=== PATIENT | female | born 1945 | race Caucasian/White ===

== ENCOUNTER 2016-07-14 16:10 | Emergency (ER) | payer OTHER ==
[~2016-07-14] VITALS: Ht 152.4 cm; Wt 65.0 kg
[~2016-07-14 16:10] MED LIST: ALBU0.08 NEB; AMIK4INJ2 NEB; ASPI1TAB69 PO; AZIT250T3 PO; CARV6.252 PO; CLOB-23 TOPICAL; CLON0.5T PO; ETHA400T PO; FLUT1INH INH; FURO1TAB62 PO; IBUP-988 PO; LEVO.1 PO; LOSA25TA PO; METF500T PO; PRAV80TA2 PO; RANI150T PO; VENL75TA2 PO; VENTAER INH
[2016-07-14 16:14] VITALS: BP 126/65; PULSE 113; RESP 16; TEMP 98.2; O2SAT 95
[2016-07-14] MEDS ORDERED: SODIUM CHLOR 0.9% 1000 ML INJ 1,000 ML IV SCH (16:29)
[2016-07-14] MEDS ORDERED: HYDROmorphone HCL PF 1 MG/ML VIAL IVS ONE (16:30)
[2016-07-14] MEDS ORDERED: SODIUM CHLORIDE 0.9% FLUSH 5 ML FLUSH IVF PRN (16:30)
[2016-07-14] MEDS ORDERED: ONDANSETRON HCL 4 MG/2 ML VIAL IVP ONE (16:30)
--- NOTE | 2016-07-14 16:34 | PD ---
HPI Chief Complaint: Abdominal Pain Time Seen by Provider: 16:29 Travel History International Travel<30 days: No Contact w/Intl Traveler<30days: No Traveled to known affect area: No History of Present Illness HPI 71-year-old female with history of multiple medical issues, presents to the ER today with one-day history of 10 out of 10 left lower quadrant pains that started at 11 AM. She denies any nausea, vomiting, diarrhea, fevers, urinary symptoms, or any other symptoms. Pain started pretty quickly and is constant in nature. She does not know any exacerbating or alleviating factors. Modifying Factors: None Associated Signs & Symptoms: Left lower quadrant abdominal pain Risk Factors: None PFSH Past Medical History Hx Anticoagulant Therapy: Yes (81 MG. 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 , HTN, CHOL) High Cholesterol: Yes Chemotherapy: No Chest Pain: Yes (cardiac cath) Congestive Heart Failure: Yes COPD: Yes Cerebrovascular Accident: Yes Diabetes: Yes Diminished Hearing: No Endocrine: Yes (HYPOTHYRODISM) Gastrointestinal Disorders: Yes (REFLUX) GERD: Yes Genitourinary: Yes Headaches: Yes Hepatitis: No Hiatal Hernia: Yes Hypertension: Yes Immune Disorder: Yes (SARCOIDOSIS) Kidney Stones: Yes Musculoskeletal: Yes Neurologic: Yes Psychiatric: Yes Reproductive: No Respiratory: Yes Immunizations Current: Yes Migraines: Yes (optical migraine) Radiation Therapy: No Renal Failure: No Seizures: No Sleep Apnea: No Ulcer: No ?: Not Menopausal: Yes Tubal Ligation: Yes Past Surgical History Abdominal Surgery: Yes (cholecystectomy and appendetomy) AICD: No Arteriovenous Shunt: No Cardiac Surgery: Yes (cardiac cath) Cholecystectomy: Yes Ear Surgery: No Endocrine Surgery: Yes (thyroidectomy) Eye Surgery: No Genitourinary Surgery: Yes (bladder sling) Gynecologic Surgery: No Insulin Pump: No Joint Replacement: No Oral Surgery: No Pacemaker: No Thoracic Surgery: Yes ( mass remval from sternum) Tonsillectomy: Yes Other Surgery: Yes (THYROIDECTOMY) Social History Alcohol Use: No (STOPPED DRINKING AUGUST 2015) Tobacco Use: No Substance Use: No Allergies-Medications (Allergen,Severity, Reaction): Coded Allergies: Allopurinol (Verified Allergy, Severe, RASH, 07/14/16) RAMUCIRUMAB (Verified Allergy, Intermediate, nausea vomiting, 07/14/16) possible allergy Sulfa (Unverified Allergy, Intermediate, Rash, 07/14/16) Oxycodone (Verified Allergy, Mild, ITCHING, 07/14/16) Cephalexin (Verified Allergy, Unknown, HIVES, 07/14/16) Methimazole (Verified Allergy, Unknown, HIVES, 07/14/16) Trimethoprim (Unverified Allergy, Unknown, HIVES, 07/14/16) Propranolol (Verified Adverse Reaction, Severe, NAUSEAS, 07/14/16) BRUISING AND NAUSEA Propylthiouracil (Unverified Adverse Reaction, Severe, NAUSES, 07/14/16) BRUISING AND NAUSEA Meloxicam (Verified Adverse Reaction, Intermediate, NAUSEA, 07/14/16) Reported Meds & Prescriptions Reported Meds & Active Scripts Active Reported Amikacin Inj (Amikacin Sulfate) 500 Mg/2 Ml Inj 500 Mg NEB BID Advil (Ibuprofen) 200 Mg Tab 200 Mg PO DIRECTED PRN Ranitidine (Ranitidine HCl) 150 Mg Tab 150 Mg PO DAILY PRN Ethambutol (Ethambutol HCl) 400 Mg Tab 900 Mg PO DAILY Azithromycin 250 Mg Tab 250 Mg PO DAILY Albuterol Neb (Albuterol Sulfate) 2.5 Mg/3 Ml Neb 2.5 Mg NEB BID While awake Ventolin Hfa 18 GM Inh (Albuterol Sulfate) 90 Mcg/Act Aer 1 Puff INH DIRECTED PRN Venlafaxine ER 24 HR (Venlafaxine HCl) 75 Mg Tab 75 Mg PO DAILY Synthroid (Levothyroxine Sodium) 100 Mcg Tab 100 Mcg PO DAILY Pravastatin 80 Mg Tab 80 Mg PO HS Metformin (Metformin HCl) 500 Mg Tab 500 Mg PO BID With meals Losartan (Losartan Potassium) 25 Mg Tab 25 Mg PO HS Lasix (Furosemide) 20 Mg Tab 10 Mg PO DAILY Breo Ellipta Inh (Fluticasone/Vilanterol) 100-25 Mcg/Act Inh 1 Puff INH DAILY Use daily at the same time. Clonazepam 0.5 Mg Tab 0.5 Mg PO HS Carvedilol 6.25 Mg Tab 6.25 Mg PO BID Aspirin 81 Mg Tabdr 81 Mg PO HS Review of Systems Except as stated in HPI: all other systems reviewed are Neg Physical Exam Narrative GENERAL: Well-nourished, well-developed elderly white female patient in mild distress. SKIN: Warm and dry. HEAD: Normocephalic. EYES: No scleral icterus. No injection or drainage. NECK: Supple, trachea midline. CARDIOVASCULAR: Regular rate and rhythm without murmurs, gallops, or rubs. RESPIRATORY: Breath sounds equal bilaterally. No accessory muscle use. GASTROINTESTINAL: Abdomen soft, left-sided tenderness without guarding or rebound, nondistended. MUSCULOSKELETAL: No cyanosis, or edema. BACK: Nontender without obvious deformity. No CVA tenderness. Data Data Last Documented VS Vital Signs Date Time Temp Pulse Resp B/P Pulse Ox O2 Delivery O2 Flow Rate FiO2 07/14/16 18:14 98 16 94/57 94 Room Air 07/14/16 16:14 98.2 Orders Complete Blood Count With Diff (07/14/16 16:29) Comprehensive Metabolic Panel (07/14/16 16:29) Lipase (07/14/16 16:29) Urinalysis - C+S If Indicated (07/14/16 16:29) Ct Abd/Pel W Iv Contrast(Rout) (07/14/16 16:29) Iv Access Insert/Monitor (07/14/16 16:29) Ecg Monitoring (07/14/16 16:29) Oximetry (07/14/16 16:29) Ondansetron Inj (Zofran Inj) (07/14/16 16:30) Sodium Chlor 0.9% 1000 Ml Inj (Ns 1000 M (07/14/16 16:29) Sodium Chloride 0.9% Flush (Ns Flush) (07/14/16 16:30) Hydromorphone Pf Inj (Dilaudid Pf Inj) (07/14/16 16:30) Labs Laboratory Tests Test 07/14/16 07/14/16 16:50 18:05 White Blood Count 10.6 TH/MM3 Red Blood Count 4.54 MIL/MM3 Hemoglobin 12.9 GM/DL Hematocrit 39.6 % Mean Corpuscular Volume 87.2 FL Mean Corpuscular Hemoglobin 28.4 PG Mean Corpuscular Hemoglobin 32.5 % Concent Red Cell Distribution Width 14.4 % Platelet Count 288 TH/MM3 Mean Platelet Volume 8.1 FL Neutrophils (%) (Auto) 77.4 % Lymphocytes (%) (Auto) 14.3 % Monocytes (%) (Auto) 5.7 % Eosinophils (%) (Auto) 1.7 % Basophils (%) (Auto) 0.9 % Neutrophils # (Auto) 8.2 TH/MM3 Lymphocytes # (Auto) 1.5 TH/MM3 Monocytes # (Auto) 0.6 TH/MM3 Eosinophils # (Auto) 0.2 TH/MM3 Basophils # (Auto) 0.1 TH/MM3 CBC Comment DIFF FINAL Differential Comment Sodium Level 137 MEQ/L Potassium Level 3.6 MEQ/L Chloride Level 99 MEQ/L Carbon Dioxide Level 27.6 MEQ/L Anion Gap 10 MEQ/L Blood Urea Nitrogen 21 MG/DL Creatinine 1.00 MG/DL Estimat Glomerular Filtration 55 ML/MIN Rate Random Glucose 113 MG/DL Calcium Level 9.3 MG/DL Total Bilirubin 0.6 MG/DL Aspartate Amino Transf 24 U/L (AST/SGOT) Alanine Aminotransferase 18 U/L (ALT/SGPT) Alkaline Phosphatase 144 U/L Total Protein 8.2 GM/DL Albumin 3.9 GM/DL Lipase 422 U/L Urine Collection Type VOIDED Urine Color STRAW Urine Turbidity CLEAR Urine pH 6.0 Urine Specific [place] 1.015 Urine Protein NEG mg/dL Urine Glucose (UA) NEG mg/dL Urine Ketones NEG mg/dL Urine Occult Blood TRACE Urine Nitrite NEG Urine Bilirubin NEG Urine Leukocyte Esterase NEG Urine WBC 0-2 /hpf Urine Squamous Epithelial 0-2 /hpf Cells Microscopic Urinalysis Comment CULT NOT INDICATED MDM Medical Decision Making Medical Screen Exam Complete: Yes Emergency Medical Condition: Yes Medical Record Reviewed: Yes Interpretation(s) Laboratory Tests Test 07/14/16 07/14/16 16:50 18:05 Neutrophils (%) (Auto) 77.4 % (16.0-70.0) Neutrophils # (Auto) 8.2 TH/MM3 (1.8-7.7) Blood Urea Nitrogen 21 MG/DL (7-18) Estimat Glomerular Filtration 55 ML/MIN (>89) Rate Random Glucose 113 MG/DL (74-106) Alkaline Phosphatase 144 U/L (45-117) Lipase 422 U/L (73-393) Urine Occult Blood TRACE (NEG) Differential Diagnosis Left-sided abdominal painrenal colic versus pyelonephritis versus musculoskeletal versus diverticulitis Narrative Course Lab work shows elevation in lipase indicative of underlying mild pancreatitis. UA did not show any signs of significant acute UTI. The CAT scan does show some signs of mild diverticulitis, colitis as well. At this point, my plan would be to have her go on a clear diet for several days and avoid alcohol intake which she states she takes on a regular basis. We will give her symptomatic relief or pain and follow-up to primary care physician. Return for any worsening in symptoms as necessary. The plan has been discussed with her and she is agreeable. Diagnosis Primary Impression: Diverticulitis Additional Impression: OTHER ACUTE PANCREATITIS WITHOUT NECROSIS OR INFECTION Med/Other Pt SpecificInfo: Prescription(s) given Scripts Metronidazole (Flagyl)500 Mg Tiv219 Mg PO BID 7 Days Ref 0 Prov:Richard Cortez MD 07/14/16 Ciprofloxacin (Cipro)500 Mg Hsi196 Mg PO BID 7 Days Ref 0 Prov:Richard Cortez MD 07/14/16 Ibuprofen (Motrin Ib)200 Mg Xag435 Mg PO Q6H PRN (PAIN SCALE 1 TO 10) #21 TAB Ref 0 Prov:Richard Cortez MD 07/14/16 Disposition: DISCHARGE HOME Condition: Stable Richard Cortez MD Jul 14, 2016 16:33
[2016-07-14 17:03] VITALS: RESP 18; O2SAT 95
[2016-07-14 17:07] LABS: AUTOMATED NEUTROPHIL # 8.2 TH/MM3 (1.8-7.7); BASOPHIL # 0.1 TH/MM3 (0-0.2); BASOPHIL % 0.9 % (0.0-2.0); EOSINOPHIL # 0.2 TH/MM3 (0-0.4); EOSINOPHIL % 1.7 % (0.0-4.0); HEMATOCRIT 39.6 % (35.0-46.0); LYMPH % 14.3 % (9.0-44.0); LYMPHOCYTE # 1.5 TH/MM3 (1.0-4.8); MEAN CELL VOLUME 87.2 FL (80.0-100.0); MEAN CORPUSCULAR HEMOGLOBIN 28.4 PG (27.0-34.0); MEAN CORPUSCULAR HGB CONC 32.5 % (32.0-36.0); MONO % 5.7 % (0.0-8.0); NEUT % 77.4 % (16.0-70.0); PLATELET COUNT 288 TH/MM3 (150-450); RED BLOOD COUNT 4.54 MIL/MM3 (4.00-5.30); RED CELL DISTRIBUTION WIDTH 14.4 % (11.6-17.2); WHITE BLOOD COUNT 10.6 TH/MM3 (4.0-11.0)
[2016-07-14 17:14] LABS: HEMO FLAGS DIFF FINAL
[2016-07-14 17:15] LABS: CHLORIDE 99 MEQ/L (98-107); POTASSIUM 3.6 MEQ/L (3.5-5.1); SODIUM (NA) 137 MEQ/L (136-145)
[2016-07-14 17:19] LABS: ANION GAP 10 MEQ/L (5-15); BICARBONATE 27.6 MEQ/L (21.0-32.0); BLOOD UREA NITROGEN 21 MG/DL (7-18)
[2016-07-14 17:22] LABS: ALT (GPT) 18 U/L (10-53); AST (GOT) 24 U/L (15-37); GLOMERULAR FILTRATION RATE 55 ML/MIN (>89)
[2016-07-14 17:24] LABS: TOTAL BILIRUBIN ADULT 0.6 MG/DL (0.2-1.0)
[2016-07-14 17:25] LABS: ALKALINE PHOSPHATASE 144 U/L (45-117)
[2016-07-14] MEDS ORDERED: AMIK4INJ2 NEB (17:42)
[2016-07-14 18:14] VITALS: BP 94/57; PULSE 98; RESP 16; O2SAT 94
[2016-07-14 18:23] LABS: BLOOD, URINE TRACE (NEG); GLUCOSE,URINE NEG (NEG); KETONE, URINE NEG (NEG); NITRITE,URINE NEG (NEG)
[2016-07-14 18:35] LABS: METHOD OF COLLECTION VOIDED; SQUAMOUS EPITHELIAL CELL URINE 0-2 /hpf (0-5); URINE COLOR STRAW (YELLW/STRAW); WBC, URINE 0-2 /hpf (0-5)
[2016-07-14 18:36] LABS: COMMENT (UR) CULT NOT INDICATED; CULTURE IF INDICATED CULT NOT INDICATED
--- NOTE | 2016-07-14 18:42 | RADHPO ---
EXAM DATE/TIME: 07/14/2016 17:47 [facility] COMPARISON: CT PULMONARY ANGIOGRAM, October 13, 2015, 10:27. CT ABDOMEN & PELVIS W/O CONTR AST, April 09, 2016, 19:36. INDICATIONS : Left lower quadrant pain. IV CONTRAST: 97 cc Omnipaque 350 (iohexol) IV ORAL CONTRAST: No oral contrast ingested. RADIATION DOSE: 13.45 CTDIvol (mGy) MEDICAL HISTORY : Congestive heart failure. Gastroesophageal reflux disease. Chronic obstructive pulmonary disease. Hypertension. Renal calculi. Pulmonary sarcoidosis. Cardiac sarcoidosis. SURGICAL HISTORY : Appendectomy. Cholecystectomy. Tubal ligation. Right hip replacement. ENCOUNTER: Initial ACUITY: 1 day PAIN SCALE: 8/10 LOCATION: Left lower quadrant TECHNIQUE: Volumetric scanning of the abdomen and pelvis was performed. Using automated exposure control and adjustment of the mA and/or kV according to patient size, radiation dose was kept as low as reasonably achievable to obtain optimal diagnostic quality images. FINDINGS: The liver, spleen, pancreas, and adrenal glands appear grossly normal. There does appe ar to be a more horizontal orientation of the right kidney. This is a normal variant. The kidneys a ppear otherwise unremarkable. No hydronephrosis is seen. Scattered atherosclerotic calcifications a re seen throughout the arterial system. No aneurysm is seen. There do appear to be scattered diverticula in the descending and sigmoid portion of the colon. There is some mild induration seen around the junction of the descending and sigmoid portions of the colon likely related to mild diverticulitis. No abscess is seen. There is a densely calcified mass in the left pelvis measuring 4.2 cm. This likely represents a larg e calcified leiomyoma of the uterus. There is some subpleural density seen at the periphery of the right lung. Much of this was present p reviously. There are some new areas and some areas that have resolved. This is typically a pattern for post inflammatory change. There is some nodularity seen in the left lingula. This appears stable . There is degenerative change in the lumbar spine. The patient has a right hip prosthesis in place. There is a 4.4 cm lipoma seen in the anterior superior left thigh musculature. CONCLUSION: 1. Mild inflammatory change around the colon at the junction between the descending and sigmoid regio ns with some scattered diverticula consistent with diverticulitis. 2. Peripheral areas of increased density is seen at the right lower lung and left lingula likely repr esenting post inflammatory change. 3. Calcified leiomyoma of the uterus. Emiliano Espinoza MD on July 14, 2016 at 18:17 Board Certified Radiologist. This report was verified electronically.
[2016-07-14] MEDS ORDERED: MOTR200T4 PO (19:02)
[2016-07-14] MEDS ORDERED: CIPR-9 PO (19:02)
[2016-07-14] MEDS ORDERED: METR-1 PO (19:02)
[2016-07-14 19:44] VITALS: BP 92/64
[2016-07-14] MEDS ORDERED: IOHEXOL 350 MG/ML 10 ML VIAL (for RAD DIAG) IV ONE (21:04)
[2016-07-15] MEDS ORDERED: CYAN100017 PO (14:08)
== END 2016-07-14 20:04 | disposition home or self-care (01) ==
LOC: PHED 16:10
DX: K57.92 Diverticulitis of intestine, part unspecified, without perforation or abscess without bleeding (principal); K52.9 Noninfective gastroenteritis and colitis, unspecified; Z79.01 Long term (current) use of anticoagulants; I50.9 Heart failure, unspecified; J44.9 Chronic obstructive pulmonary disease, unspecified; E11.9 Type 2 diabetes mellitus without complications; K21.9 Gastro-esophageal reflux disease without esophagitis; I10 Essential (primary) hypertension
CPT/HCPCS: 74177; 80053; 81001; 83690; 85025; 96361; 96374; 96375; 99284; J1170; J2405; J7030; Q9967

== ENCOUNTER 2016-07-15 11:57 | Inpatient (IN) | payer OTHER, MEDICARE ==
[~2016-07-15] VITALS: Ht 152.4 cm; Wt 77.1 kg
[2016-07-15] VITALS (11 sets, daily range): BP systolic 90–113; BP diastolic 51–76; PULSE 80–106; RESP 16–20; TEMP 97.7–98.6; O2SAT 92–99
[~2016-07-15 11:57] MED LIST changes: +CIPR-9 PO; -CLOB-23 TOPICAL; +METR-1 PO; +MOTR200T4 PO
[2016-07-15] MEDS ORDERED: SODIUM CHLOR 0.9% 1000 ML INJ 1,000 ML IV SCH (13:02)
--- NOTE | 2016-07-15 13:12 | PD ---
HPI Chief Complaint: Abdominal Pain Time Seen by Provider: 12:44 Travel History International Travel<30 days: No Contact w/Intl Traveler<30days: No Traveled to known affect area: No History of Present Illness HPI 71-year-old female complains of left low quadrant abdominal pain. Patient states that the pain started yesterday. Patient was seen in emergency room yesterday and CT scan abdomen pelvis shows diverticulitis. Patient was given hydromorphone for pain and prescription for Flagyl and Cipro and ibuprofen. Patient was advised to follow with local physician. Patient states that she had persistent pain on the left low quadrant of the abdomen. Patient has not taken her antibiotics because she is afraid of side effects and interaction with her other medications. Patient denies any fever chills.. Patient denies any nausea vomiting diarrhea. Patient denies any dysuria or frequency. On a scale of 1-10 the pain is a 10. PFSH Past Medical History Hx Anticoagulant Therapy: Yes (81 MG. 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) Anxiety: Yes Depression: Yes Heart Rhythm Problems: Yes (right bundle branch block) Cancer: No Cardiac Catheterization: No Cardiovascular Problems: Yes High Cholesterol: Yes Chemotherapy: No Chest Pain: Yes (cardiac cath) Congestive Heart Failure: Yes COPD: Yes Cerebrovascular Accident: Yes Diabetes: Yes Patient Takes Glucophage: Yes Diminished Hearing: No Endocrine: Yes (HYPOTHYRODISM) Gastrointestinal Disorders: Yes (REFLUX) GERD: Yes Genitourinary: Yes Headaches: Yes Hepatitis: No Hiatal Hernia: Yes Heparin Induced Thrombocytopen: No Hypertension: Yes Immune Disorder: Yes (SARCOIDOSIS) Implanted Vascular Access Dvce: No Kidney Stones: Yes Medical other: No Musculoskeletal: Yes Neurologic: Yes Psychiatric: Yes Reproductive: No Respiratory: Yes Immunizations Current: Yes Migraines: Yes (optical migraine) Radiation Therapy: No Renal Failure: No Seizures: No Sleep Apnea: No Ulcer: No Tetanus Vaccination: Unknown Menopausal: Yes Tubal Ligation: Yes Past Surgical History Abdominal Surgery: Yes (cholecystectomy and appendetomy) AICD: No Arteriovenous Shunt: No Cardiac Surgery: Yes (cardiac cath) Cholecystectomy: Yes Ear Surgery: No Endocrine Surgery: Yes (thyroidectomy) Eye Surgery: No Genitourinary Surgery: Yes (bladder sling) Gynecologic Surgery: No Insulin Pump: No Joint Replacement: No Neurologic Surgery: No Oral Surgery: No Pacemaker: No Thoracic Surgery: Yes ( mass remval from sternum (BENIGN)) Tonsillectomy: Yes Other Surgery: Yes (THYROIDECTOMY) Family History Family Myocardial Infarction: No Social History Alcohol Use: No (STOPPED DRINKING AUGUST 2015) Tobacco Use: No (QUIT 1999) Substance Use: No Allergies-Medications (Allergen,Severity, Reaction): Coded Allergies: Allopurinol (Verified Allergy, Severe, RASH, 07/15/16) RAMUCIRUMAB (Verified Allergy, Intermediate, nausea vomiting, 07/15/16) possible allergy Sulfa (Unverified Allergy, Intermediate, Rash, 07/15/16) Oxycodone (Verified Allergy, Mild, ITCHING, 07/15/16) Cephalexin (Verified Allergy, Unknown, HIVES, 07/15/16) Methimazole (Verified Allergy, Unknown, HIVES, 07/15/16) Trimethoprim (Unverified Allergy, Unknown, HIVES, 07/15/16) Propranolol (Verified Adverse Reaction, Severe, NAUSEAS, 07/15/16) BRUISING AND NAUSEA Propylthiouracil (Unverified Adverse Reaction, Severe, NAUSES, 07/15/16) BRUISING AND NAUSEA Meloxicam (Verified Adverse Reaction, Intermediate, NAUSEA, 07/15/16) Reported Meds & Prescriptions Reported Meds & Active Scripts Active Flagyl (Metronidazole) 500 Mg Tab 500 Mg PO BID 7 Days Cipro (Ciprofloxacin HCl) 500 Mg Tab 500 Mg PO BID 7 Days Motrin Ib (Ibuprofen) 200 Mg Tab 600 Mg PO Q6H PRN Reported B-12 (Cyanocobalamin) 1,000 Mcg Cap 1,000 Mcg PO DAILY Amikacin Inj (Amikacin Sulfate) 500 Mg/2 Ml Inj 500 Mg NEB BID Ranitidine (Ranitidine HCl) 150 Mg Tab 150 Mg PO DAILY PRN Ethambutol (Ethambutol HCl) 400 Mg Tab 1,000 Mg PO DAILY Azithromycin 250 Mg Tab 250 Mg PO DAILY Albuterol Neb (Albuterol Sulfate) 2.5 Mg/3 Ml Neb 2.5 Mg NEB BID While awake Ventolin Hfa 18 GM Inh (Albuterol Sulfate) 90 Mcg/Act Aer 1 Puff INH DIRECTED PRN Venlafaxine ER 24 HR (Venlafaxine HCl) 75 Mg Tab 75 Mg PO DAILY Synthroid (Levothyroxine Sodium) 100 Mcg Tab 100 Mcg PO DAILY Pravastatin 80 Mg Tab 80 Mg PO HS Metformin (Metformin HCl) 500 Mg Tab 500 Mg PO BID With meals Losartan (Losartan Potassium) 25 Mg Tab 25 Mg PO HS Lasix (Furosemide) 20 Mg Tab 10 Mg PO DAILY Breo Ellipta Inh (Fluticasone/Vilanterol) 100-25 Mcg/Act Inh 1 Puff INH DAILY Use daily at the same time. Clonazepam 0.5 Mg Tab 0.5 Mg PO HS Carvedilol 6.25 Mg Tab 6.25 Mg PO BID Aspirin 81 Mg Tabdr 81 Mg PO HS Review of Systems General / Constitutional: No: Fever Eyes: No: Visual changes HENT: No: Headaches Cardiovascular: No: Chest Pain or Discomfort Respiratory: No: Shortness of Breath Gastrointestinal: Positive: Abdominal Pain Genitourinary: No: Dysuria Musculoskeletal: No: Pain Skin: No Rash Neurologic: No: Weakness Psychiatric: No: Depression Endocrine: No: Polydipsia Hematologic/Lymphatic: No: Easy Bruising Physical Exam Narrative GENERAL: Well-nourished, well-developed patient. SKIN: Warm and dry. HEAD: Normocephalic. EYES: No scleral icterus. No injection or drainage. NECK: Supple, trachea midline. No JVD or lymphadenopathy. CARDIOVASCULAR: Regular rate and rhythm without murmurs, gallops, or rubs. RESPIRATORY: Breath sounds equal bilaterally. No accessory muscle use. GASTROINTESTINAL: Abdomen soft, nondistended. Patient has moderate tenderness on palpation left lower quadrant of the abdomen. No rebound tenderness. No mass. MUSCULOSKELETAL: No cyanosis, or edema. BACK: Nontender without obvious deformity. No CVA tenderness. Neurologic exam normal. Data Data Last Documented VS Vital Signs Date Time Temp Pulse Resp B/P Pulse Ox O2 Delivery O2 Flow Rate FiO2 07/15/16 14:37 97 Nasal Cannula 2 07/15/16 14:13 92 18 107/76 07/15/16 12:28 98.2 Orders Complete Blood Count With Diff (07/15/16 13:02) Comprehensive Metabolic Panel (07/15/16 13:02) Lipase (07/15/16 13:02) Prothrombin Time / Inr (Pt) (07/15/16 13:02) Act Partial Throm Time (Ptt) (07/15/16 13:02) Urinalysis - C+S If Indicated (07/15/16 13:02) Iv Access Insert/Monitor (07/15/16 13:02) Ecg Monitoring (07/15/16 13:02) Oximetry (07/15/16 13:02) Pantoprazole Inj (Protonix Inj) (07/15/16 13:15) Sodium Chlor 0.9% 1000 Ml Inj (Ns 1000 M (07/15/16 13:02) Electrocardiogram (07/15/16 13:02) Chest, Single Ap (07/15/16 13:02) Levofloxacin 750 Mg Premix Inj (Levaquin (07/15/16 13:15) Metronidazole 500 Mg Inj (Flagyl 500 Mg (07/15/16 13:15) Labs Laboratory Tests Test 07/15/16 07/15/16 13:30 13:35 Urine Color YELLOW Urine Turbidity HAZY Urine pH 6.0 Urine Specific [place] 1.040 Urine Protein 30 mg/dL Urine Glucose (UA) NEG mg/dL Urine Ketones NEG mg/dL Urine Occult Blood TRACE Urine Nitrite NEG Urine Bilirubin NEG Urine Urobilinogen 2.0 MG/DL Urine Leukocyte Esterase TRACE Urine RBC 3 /hpf Urine WBC 3 /hpf Urine Squamous Epithelial 2 /hpf Cells Urine Mucus FEW /lpf Microscopic Urinalysis Comment CULT NOT INDICATED White Blood Count 10.7 TH/MM3 Red Blood Count 4.29 MIL/MM3 Hemoglobin 12.2 GM/DL Hematocrit 37.6 % Mean Corpuscular Volume 87.5 FL Mean Corpuscular Hemoglobin 28.5 PG Mean Corpuscular Hemoglobin 32.5 % Concent Red Cell Distribution Width 15.4 % Platelet Count 260 TH/MM3 Mean Platelet Volume 8.2 FL Neutrophils (%) (Auto) 78.2 % Lymphocytes (%) (Auto) 14.4 % Monocytes (%) (Auto) 6.1 % Eosinophils (%) (Auto) 1.0 % Basophils (%) (Auto) 0.3 % Neutrophils # (Auto) 8.4 TH/MM3 Lymphocytes # (Auto) 1.5 TH/MM3 Monocytes # (Auto) 0.7 TH/MM3 Eosinophils # (Auto) 0.1 TH/MM3 Basophils # (Auto) 0.0 TH/MM3 CBC Comment DIFF FINAL Differential Comment Prothrombin Time 11.4 SEC Prothromb Time International 1.0 RATIO Ratio Activated Partial 27.8 SEC Thromboplast Time Sodium Level 135 MEQ/L Potassium Level 3.7 MEQ/L Chloride Level 100 MEQ/L Carbon Dioxide Level 26.4 MEQ/L Anion Gap 9 MEQ/L Blood Urea Nitrogen 15 MG/DL Creatinine 1.11 MG/DL Estimat Glomerular Filtration 49 ML/MIN Rate Random Glucose 112 MG/DL Calcium Level 8.8 MG/DL Total Bilirubin 1.2 MG/DL Aspartate Amino Transf 37 U/L (AST/SGOT) Alanine Aminotransferase 25 U/L (ALT/SGPT) Alkaline Phosphatase 148 U/L Total Protein 7.3 GM/DL Albumin 3.6 GM/DL Lipase 275 U/L [facility] Medical Decision Making Medical Screen Exam Complete: Yes Emergency Medical Condition: Yes Medical Record Reviewed: Yes Interpretation(s) 1532 PM. Chest x-ray shows chronic infiltrate right upper lobe unchanged from x -ray since June. CBC within normal limit. Creatinine 1.11. UA negative. Differential Diagnosis Differential diagnosis including acute diverticulitis, UTI, pyelonephritis, nephrolithiasis. Narrative Course 71-year-old female with left low quadrant abdominal pain. Patient was seen in emergency room yesterday and diagnosed with diverticulitis. Patient has not been on antibiotics. Normal saline solution 125 cc an hour. Protonix 40 mg IV. Levaquin 750 mg IV. Flagyl 500 mg IV. Diagnosis Primary Impression: Acute diverticulitis Admitting Information Admitting Physician Requests: Admit Sheldon Hdz MD Jul 15, 2016 13:12
[2016-07-15] MEDS ORDERED: LEVOFLOXACIN 750 MG PREMIX INJ 150 ML IV ONE (13:15)
[2016-07-15] MEDS ORDERED: metroNIDAZOLE 500 MG INJ 100 ML IV ONE (13:15)
[2016-07-15] MEDS ORDERED: PANTOPRAZOLE SODIUM 40 MG VIAL IVP ONE (13:15)
--- NOTE | 2016-07-15 13:28 | RADRPT ---
EXAM DATE/TIME: 07/15/2016 13:13 [facility] COMPARISON: Previous study June 2016 available for comparison. INDICATIONS : Free air. Lower chest pain. MEDICAL HISTORY : Congestive heart failure. Gastroesophageal reflux disease. Chronic obstr uctive pulmonary disease. SURGICAL HISTORY : Appendectomy. Cholecystectomy. Tubal ligation. Right hip replacement ENCOUNTER: Initial ACUITY: 1 day PAIN SCORE: 8/10 LOCATION: Bilateral chest FINDINGS: A single view of the chest demonstrates there is a patchy infiltrate in the right lung apex unchanged . Left lung is clear. Heart and mediastinum are unremarkable. CONCLUSION: Chronic infiltrate in the right upper lobe unchanged since June. Alpesh Pham MD on July 15, 2016 at 13:23 Board Certified Radiologist. This report was verified electronically.
[2016-07-15 13:51] LABS: AUTOMATED NEUTROPHIL # 8.4 TH/MM3 (1.8-7.7); BASOPHIL % 0.3 % (0.0-2.0); EOSINOPHIL # 0.1 TH/MM3 (0-0.4); HEMATOCRIT 37.6 % (35.0-46.0); HEMO FLAGS DIFF FINAL; LYMPH % 14.4 % (9.0-44.0); LYMPHOCYTE # 1.5 TH/MM3 (1.0-4.8); MEAN CELL VOLUME 87.5 FL (80.0-100.0); MEAN CORPUSCULAR HEMOGLOBIN 28.5 PG (27.0-34.0); MEAN CORPUSCULAR HGB CONC 32.5 % (32.0-36.0); MONO % 6.1 % (0.0-8.0); NEUT % 78.2 % (16.0-70.0); PLATELET COUNT 260 TH/MM3 (150-450); RED BLOOD COUNT 4.29 MIL/MM3 (4.00-5.30); RED CELL DISTRIBUTION WIDTH 15.4 % (11.6-17.2); WHITE BLOOD COUNT 10.7 TH/MM3 (4.0-11.0)
[2016-07-15 13:56] LABS: BLOOD, URINE TRACE (NEG); COMMENT (UR) CULT NOT INDICATED; CULTURE IF INDICATED CULT NOT INDICATED; GLUCOSE,URINE NEG (NEG); KETONE, URINE NEG (NEG); MUCUS URINE FEW /lpf (OCC); NITRITE,URINE NEG (NEG); SQUAMOUS EPITHELIAL CELL URINE 2 /hpf (0-5); URINE COLOR YELLOW (YELLW/STRAW)
[2016-07-15 13:59] LABS: APTT (PATIENT) 27.8 SEC (24.3-30.1); PROTHROMBIN TIME - PATIENT 11.4 SEC (9.8-11.6)
[2016-07-15] MEDS ORDERED: CYAN100017 PO (14:08)
[2016-07-15 14:11] LABS: ANION GAP 9 MEQ/L (5-15); AST (GOT) 37 U/L (15-37); BICARBONATE 26.4 MEQ/L (21.0-32.0); BLOOD UREA NITROGEN 15 MG/DL (7-18); CHLORIDE 100 MEQ/L (98-107); GLOMERULAR FILTRATION RATE 49 ML/MIN (>89); POTASSIUM 3.7 MEQ/L (3.5-5.1); SODIUM (NA) 135 MEQ/L (136-145)
[2016-07-15 14:15] LABS: ALKALINE PHOSPHATASE 148 U/L (45-117); ALT (GPT) 25 U/L (10-53); TOTAL BILIRUBIN ADULT 1.2 MG/DL (0.2-1.0)
[2016-07-15] MEDS ORDERED: ONDANSETRON HCL 4 MG/2 ML VIAL IV PUSH ONE (16:45)
[2016-07-15] MEDS ORDERED: MORPHINE SULFATE 4 MG/ML INJ IV PUSH ONE (16:45)
[2016-07-15] MEDS ORDERED: MORPHINE SULFATE 4 MG/ML INJ IV PUSH PRN (17:00)
[2016-07-15] MEDS ORDERED: MAGNESIUM HYDROXIDE SUSP 30 ML CUP PO PRN (17:00)
[2016-07-15] MEDS ORDERED: ONDANSETRON HCL 4 MG/2 ML VIAL IVP PRN (17:00)
[2016-07-15] MEDS ORDERED: NALOXONE HCL 0.4 MG/ML AMP IV PRN (17:00)
--- NOTE | 2016-07-15 17:12 | HHI.HP ---
[facility] Roni Song Do, MD Admission Diagnosis acute diverticulitis Diagnoses: (1) Diverticulitis Diagnosis: Principal (2) Sarcoidosis (3) Diabetes mellitus, type 2 (4) COPD (chronic obstructive pulmonary disease) Chief Complaint: Abdominal pain Travel History International Travel<30 Days: No Contact w/Intl Traveler <30 Da: No Traveled to Known Affected Are: No History of Present Illness Patient is a 71-year-old female who was in the emergency department with complaint of left lower quadrant abdominal pain. The pain started yesterday at about 11:30 in the morning following a late breakfast. She went emergency department in [place] and was diagnosed with diverticulitis. She was given pain medication and discharged home with prescription for Flagyl and ciprofloxacin. She did not fill the prescriptions for antibiotics. Pain continued to worsen and she returned to the emergency department this morning. Denies nausea or vomiting. Has had night sweats, but no fever or chills. Denies constipation or diarrhea. Review of Systems Constitutional: COMPLAINS OF: Night Sweats, DENIES: Fever, Chills Eyes: DENIES: Blurred vision, Vision loss Ears, nose, mouth, throat: DENIES: Hearing loss Respiratory: DENIES: Cough, Wheezing, Sputum production, Shortness of breath Cardiovascular: DENIES: Chest pain, Palpitations, Dyspnea on Exertion, Lower Extremity Edema Gastrointestinal: COMPLAINS OF: Abdominal pain, DENIES: Constipation, Diarrhea , Nausea, Vomiting Genitourinary: DENIES: Urinary frequency, Urinary incontinence, Urgency, Hematuria, Dysuria, Nocturia Musculoskeletal: DENIES: Joint pain, Muscle aches Integumentary: DENIES: Pruritus, Rash Hematologic/lymphatic: DENIES: Bruising Neurologic: DENIES: Headache Past Family Social History Past Medical History Arthritis Pulmonary and cardiac sarcoidosis Anxiety/depression Right bundle branch block Hyperlipidemia COPD Diabetes mellitus Hypothyroidism GERD History of optical migraine Past Surgical History Cholecystectomy Appendectomy Cardiac catheterization Thyroidectomy Bladder sling Left knee replacement Right hip replacement Right foot surgery Tubal ligation Reported Medications Flagyl (Metronidazole) 500 Mg Tab 500 Mg PO BID 7 Days Cipro (Ciprofloxacin HCl) 500 Mg Tab 500 Mg PO BID 7 Days Motrin Ib (Ibuprofen) 200 Mg Tab 600 Mg PO Q6H PRN B-12 (Cyanocobalamin) 1,000 Mcg Cap 1,000 Mcg PO DAILY Amikacin Inj (Amikacin Sulfate) 500 Mg/2 Ml Inj 500 Mg NEB BID Ranitidine (Ranitidine HCl) 150 Mg Tab 150 Mg PO DAILY PRN Ethambutol (Ethambutol HCl) 400 Mg Tab 1,000 Mg PO DAILY Azithromycin 250 Mg Tab 250 Mg PO DAILY Albuterol Neb (Albuterol Sulfate) 2.5 Mg/3 Ml Neb 2.5 Mg NEB BID While awake Ventolin Hfa 18 GM Inh (Albuterol Sulfate) 90 Mcg/Act Aer 1 Puff INH DIRECTED PRN Venlafaxine ER 24 HR (Venlafaxine HCl) 75 Mg Tab 75 Mg PO DAILY Synthroid (Levothyroxine Sodium) 100 Mcg Tab 100 Mcg PO DAILY Pravastatin 80 Mg Tab 80 Mg PO HS Metformin (Metformin HCl) 500 Mg Tab 500 Mg PO BID With meals Losartan (Losartan Potassium) 25 Mg Tab 25 Mg PO HS Lasix (Furosemide) 20 Mg Tab 10 Mg PO DAILY Breo Ellipta Inh (Fluticasone/Vilanterol) 100-25 Mcg/Act Inh 1 Puff INH DAILY Use daily at the same time. Clonazepam 0.5 Mg Tab 0.5 Mg PO HS Carvedilol 6.25 Mg Tab 6.25 Mg PO BID Aspirin 81 Mg Tabdr 81 Mg PO HS Allergies: Coded Allergies: Allopurinol (Verified Allergy, Severe, RASH, 07/15/16) RAMUCIRUMAB (Verified Allergy, Intermediate, nausea vomiting, 07/15/16) possible allergy Sulfa (Unverified Allergy, Intermediate, Rash, 07/15/16) Oxycodone (Verified Allergy, Mild, ITCHING, 07/15/16) Cephalexin (Verified Allergy, Unknown, HIVES, 07/15/16) Methimazole (Verified Allergy, Unknown, HIVES, 07/15/16) Trimethoprim (Unverified Allergy, Unknown, HIVES, 07/15/16) Propranolol (Verified Adverse Reaction, Severe, NAUSEAS, 07/15/16) BRUISING AND NAUSEA Propylthiouracil (Unverified Adverse Reaction, Severe, NAUSES, 07/15/16) BRUISING AND NAUSEA Meloxicam (Verified Adverse Reaction, Intermediate, NAUSEA, 07/15/16) Family History Quit smoking in 1999. Often drinks 1 alcoholic beverage per day, but not in the last few days. Denies illicit drug use. Physical Exam Vital Signs Vital Signs Date Time Temp Pulse Resp B/P Pulse Ox O2 Delivery O2 Flow Rate FiO2 07/15/16 16:04 98 18 101/58 99 Nasal Cannula 2 07/15/16 14:37 97 Nasal Cannula 2 07/15/16 14:13 92 18 107/76 92 Room Air 07/15/16 13:34 96 Room Air 07/15/16 12:28 98.2 106 16 113/60 98 07/15/16 12:25 98.6 106 18 90/58 94 Room Air Physical Exam GENERAL: Well-nourished, well-developed female in no acute distress. HEENT: Normocephalic, atraumatic. Pupils equal, round and reactive. Extraocular movements intact. No scleral icterus. No injection or drainage. Oropharynx is clear. Mucous membranes are moist. CARDIOVASCULAR: Irregular. RESPIRATORY: Clear to auscultation. No wheezes, rales, or rhonchi. Breathing is non-labored. GASTROINTESTINAL: Abdomen soft, tender to palpation in the left lower quadrant without rebound or guarding, nondistended. EXTREMITIES: No lower extremity edema. No calf tenderness. PSYCH: Alert and oriented x 3. Laboratory Laboratory Tests Test 07/15/16 07/15/16 13:30 13:35 Urine Color YELLOW Urine Turbidity HAZY Urine pH 6.0 Urine Specific [place] 1.040 Urine Protein 30 Urine Glucose (UA) NEG Urine Ketones NEG Urine Occult Blood TRACE Urine Nitrite NEG Urine Bilirubin NEG Urine Urobilinogen 2.0 Urine Leukocyte Esterase TRACE Urine RBC 3 Urine WBC 3 Urine Squamous Epithelial 2 Cells Urine Mucus FEW Microscopic Urinalysis Comment CULT NOT INDICATED White Blood Count 10.7 Red Blood Count 4.29 Hemoglobin 12.2 Hematocrit 37.6 Mean Corpuscular Volume 87.5 Mean Corpuscular Hemoglobin 28.5 Mean Corpuscular Hemoglobin 32.5 Concent Red Cell Distribution Width 15.4 Platelet Count 260 Mean Platelet Volume 8.2 Neutrophils (%) (Auto) 78.2 Lymphocytes (%) (Auto) 14.4 Monocytes (%) (Auto) 6.1 Eosinophils (%) (Auto) 1.0 Basophils (%) (Auto) 0.3 Neutrophils # (Auto) 8.4 Lymphocytes # (Auto) 1.5 Monocytes # (Auto) 0.7 Eosinophils # (Auto) 0.1 Basophils # (Auto) 0.0 CBC Comment DIFF FINAL Differential Comment Prothrombin Time 11.4 Prothromb Time International 1.0 Ratio Activated Partial 27.8 Thromboplast Time Sodium Level 135 Potassium Level 3.7 Chloride Level 100 Carbon Dioxide Level 26.4 Anion Gap 9 Blood Urea Nitrogen 15 Creatinine 1.11 Estimat Glomerular Filtration 49 Rate Random Glucose 112 Calcium Level 8.8 Total Bilirubin 1.2 Aspartate Amino Transf 37 (AST/SGOT) Alanine Aminotransferase 25 (ALT/SGPT) Alkaline Phosphatase 148 Total Protein 7.3 Albumin 3.6 Lipase 275 Result Diagram: 07/15/16 1335 07/15/165 Assessment and Plan Assessment and Plan 1. Acute diverticulitis: Continue pain control, antibiotics, IV fluids. Clear liquid diet. 2. Arrhythmia: Appears to be sinus arrhythmia. Patient denies cardiac history. Consult cardiology. 3. Hypothyroidism: Continue Synthroid. 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 Continue current medications. 5. Hypertension: Continue losartan, carvedilol. 6. Diabetes mellitus: Hold metformin. Monitor Accu-Cheks and cover with sliding scale insulin. 7. Hyperlipidemia: Continue statin. 8. DVT prophylaxis: Heparin. Code Status Full code. Patient states that she does not want to be maintained long-term on ventilator. Forrest Aceves MD Jul 15, 2016 17:12
[2016-07-15] MEDS: HEPARIN SODIUM - SQ 10,000 UNITS/ML VIAL SQ SCH (19:37)
[2016-07-15] MEDS: MORPHINE SULFATE 4 MG/ML INJ IV PUSH PRN ×2 (19:38→23:09)
[2016-07-15] MEDS: metroNIDAZOLE 500 MG INJ 100 ML IV SCH (20:44)
[2016-07-15] MEDS: PRAVASTATIN SOD 80 MG TAB PO SCH (20:45)
[2016-07-15] MEDS: ASPIRIN EC 81 MG TABEC PO SCH (20:46)
[2016-07-15] MEDS: FAMOTIDINE 20 MG TAB PO SCH (20:46)
[2016-07-15] MEDS: clonazePAM 0.5 MG TAB PO SCH (20:49)
[2016-07-15] MEDS ORDERED: CARVEDILOL 6.25 MG TAB PO SCH (21:00)
[2016-07-15] MEDS: RESP: ALBUTEROL 2.5 MG/3 ML NEB (SCH) NEB (21:28)
[2016-07-16] VITALS (25 sets, daily range): BP systolic 81–118; BP diastolic 43–69; PULSE 84–136; RESP 17–20; TEMP 96.9–98.3; O2SAT 90–98
[2016-07-16] MEDS ORDERED: SODIUM CHLOR 0.9% 250 ML INJ 250 ML IV ONE ×3 (04:00→06:45)
[2016-07-16] MEDS: metroNIDAZOLE 500 MG INJ 100 ML IV SCH ×3 (04:31→20:17)
[2016-07-16 05:45] LABS: AUTOMATED NEUTROPHIL # 4.4 TH/MM3 (1.8-7.7); BASOPHIL % 0.5 % (0.0-2.0); EOSINOPHIL # 0.2 TH/MM3 (0-0.4); EOSINOPHIL % 3.5 % (0.0-4.0); HEMO FLAGS DIFF FINAL; LYMPH % 19.3 % (9.0-44.0); LYMPHOCYTE # 1.3 TH/MM3 (1.0-4.8); MEAN CELL VOLUME 88.9 FL (80.0-100.0); MEAN CORPUSCULAR HEMOGLOBIN 28.7 PG (27.0-34.0); MEAN CORPUSCULAR HGB CONC 32.3 % (32.0-36.0); MONO % 9.8 % (0.0-8.0); NEUT % 66.9 % (16.0-70.0); PLATELET COUNT 207 TH/MM3 (150-450); RED CELL DISTRIBUTION WIDTH 15.1 % (11.6-17.2); WHITE BLOOD COUNT 6.6 TH/MM3 (4.0-11.0)
[2016-07-16 06:16] LABS: ALKALINE PHOSPHATASE 126 U/L (45-117); ALT (GPT) 24 U/L (10-53); ANION GAP 9 MEQ/L (5-15); AST (GOT) 24 U/L (15-37); BICARBONATE 26.2 MEQ/L (21.0-32.0); BLOOD UREA NITROGEN 13 MG/DL (7-18); CHLORIDE 107 MEQ/L (98-107); GLOMERULAR FILTRATION RATE 57 ML/MIN (>89); MAGNESIUM 1.5 MG/DL (1.5-2.5); POTASSIUM 3.7 MEQ/L (3.5-5.1); SODIUM (NA) 142 MEQ/L (136-145)
[2016-07-16] MEDS: LEVOTHYROXINE SODIUM 100 MCG TAB PO SCH (06:28)
[2016-07-16] MEDS: HEPARIN SODIUM - SQ 10,000 UNITS/ML VIAL SQ SCH ×2 (06:31→17:55)
[2016-07-16] MEDS ORDERED: MAGNESIUM SULFATE 1 GM PREMIX 100 ML IV ONE (07:15)
--- NOTE | 2016-07-16 07:56 | HHI.PR ---
Subjective Remarks Follow-up diverticulitis, arrhythmia, hypotension. Patient denies chest pain, dyspnea, lightheadedness. Denies palpitations. Heart rate has been elevated and blood pressure has been low. Still having left lower quadrant abdominal pain. Objective Vitals Vital Signs Date Time Temp Pulse Resp B/P Pulse Ox O2 Delivery O2 Flow Rate FiO2 07/16/16 07:26 94/55 07/16/16 06:30 88/60 Automatic Cuff 07/16/16 05:30 88/43 07/16/16 05:00 84/46 07/16/16 04:30 92 89/63 07/16/16 04:00 98.2 135 20 89/64 97 07/16/16 03:47 136 07/16/16 00:00 97.6 90 20 102/50 96 07/15/16 21:32 95 Nasal Cannula 2.00 07/15/16 20:00 97.7 88 20 95/51 97 07/15/16 19:38 81 16 112/63 99 Nasal Cannula 2 07/15/16 19:10 98.5 82 16 104/60 98 Nasal Cannula 2 07/15/16 19:10 16 07/15/16 17:41 80 18 101/52 98 Nasal Cannula 2 07/15/16 16:04 98 18 101/58 99 Nasal Cannula 2 07/15/16 14:37 97 Nasal Cannula 2 07/15/16 14:13 92 18 107/76 92 Room Air 07/15/16 13:34 96 Room Air 07/15/16 12:28 98.2 106 16 113/60 98 07/15/16 12:25 98.6 106 18 90/58 94 Room Air I/O 07/15/16 07/15/16 07/15/16 07/16/16 07/16/16 07/16/16 07:00 15:00 23:00 07:00 15:00 23:00 Intake Total 1345 ml Output Total 300 ml Balance 1045 ml Intake Oral 120 ml IV Total 1225 ml Output Urine Total 300 ml Result Diagram: 07/16/1652607/16/16526 Objective Remarks General: No acute distress. Heart: Tachycardic. No murmur. Lungs: Clear to auscultation bilaterally. No wheezes, rales, or rhonchi. Breathing is nonlabored. Abdomen: Soft, tender to palpation in the left lower quadrant, nondistended. Extremities: No lower extremity edema. Psych: Alert and oriented. 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 Acute diverticulitis: Continue pain control, antibiotics, IV fluids. Clear liquid diet. 2. Arrhythmia: Appears to be sinus arrhythmia. Patient denies cardiac history. Cardiology consultation is pending. Heart rate has been elevated intermittently up to the 130s. This has been associated with low blood pressure as well. 3. Hypothyroidism: Continue Synthroid. 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 Continue current medications. 5. Hypertension: Blood pressure is now low. Hold losartan. Decrease carvedilol. IV fluids. 6. Diabetes mellitus: Hold metformin. Monitor Accu-Cheks and cover with sliding scale insulin. 7. Hyperlipidemia: Continue statin. 8. DVT prophylaxis: Heparin. 9. CODE STATUS: Full code. Patient states that she does not want to be maintained long-term on ventilator. Forrest Aceves MD Jul 16, 2016 07:56
[2016-07-16] MEDS: RESP: ALBUTEROL 2.5 MG/3 ML NEB (SCH) NEB ×2 (08:05→18:58)
[2016-07-16] MEDS: FAMOTIDINE 20 MG TAB PO SCH ×2 (08:10→20:17)
[2016-07-16] MEDS: AZITHROMYCIN 250 MG TAB PO SCH (08:10)
[2016-07-16] MEDS: VENLAFAXINE HCL XR 75 MG CAP PO SCH (08:10)
[2016-07-16] MEDS: CYANOCOBALAMIN 1,000 MCG TAB PO SCH (08:10)
[2016-07-16] MEDS: NS + KCL 20 MEQ INJ 1,000 ML IV SCH ×2 (08:22→20:15)
[2016-07-16] MEDS: CARVEDILOL 3.125 MG TAB PO SCH ×2 (08:22→20:17)
[2016-07-16] MEDS: ETHAMBUTOL HCL 400 MG TAB PO SCH (09:20)
[2016-07-16] MEDS: FLUTICASONE 100 MCG/VILANTEROL 25 MCG INHALER INH SCH (09:21)
[2016-07-16] MEDS: MORPHINE SULFATE 4 MG/ML INJ IV PUSH PRN ×2 (11:57→18:46)
[2016-07-16] MEDS: LEVOFLOXACIN 750 MG PREMIX INJ 150 ML IV SCH (13:35)
--- NOTE | 2016-07-16 13:58 | EKG ---
Date Performed: 07/16/2016 Time Performed: 04:26:46 PTAGE: 71 years EKG: Sinus rhythm Marked right axis deviation Right bundle branch block Probable lateral infarct, age undetermined Lar harjit unchanged since prior tracing Abnormal ECG PREVIOUS TRACING : 07/15/2016 13.48 DOCTOR: Ritchie Gamez Interpretating Date/Time 07/16/2016 13:56:48
--- NOTE | 2016-07-16 14:00 | EKG ---
Date Performed: 07/16/2016 Time Performed: 07:26:55 PTAGE: 71 years EKG: Sinus rhythm MARKED RIGHT AXIS DEVIATION RIGHT BUNDLE BRANCH BLOCK Possible lateral infarct, age undetermined unc hanged since prior tracing ABNORMAL ECG PREVIOUS TRACING : 07/15/2016 13.48 DOCTOR: Ritchie Gamez Interpretating Date/Time 07/16/2016 13:58:56
--- NOTE | 2016-07-16 14:12 | EKG ---
Date Performed: 07/15/2016 Time Performed: 13:48:01 PTAGE: 71 years EKG: Sinus rhythm WITH FREQUENT SUPRAVENTRICULAR PREMATURE COMPLEXES MARKED RIGHT AXIS DEVIATION RIGHT BUNDLE BRANCH B LOCK Possible lateral infact, age undetermined Unchanged from prior tracing ABNORMAL ECG PREVIOUS TRACING : 10/13/2015 08.14 DOCTOR: Ritchie Gamez Interpretating Date/Time 07/16/2016 14:10:43
[2016-07-16] MEDS ORDERED: PILL SPLITTER OTHER PRN (14:15)
--- NOTE | 2016-07-16 15:10 | MB ---
cc: MONISHA ARENAS MD DATE OF CONSULTATION: 07/16/2016. REASON FOR CONSULTATION: Arrhythmia. HISTORY OF PRESENT ILLNESS: The patient is a pleasant 71-year-old woman known to me who has a history of sarcoidosis likely involving her heart. She has had significant workup performed at [facility] for which I do not have access but the patient did describe having a 30-day monitor for arrhythmia which was unremarkable as well as a negative electrophysiology study and they told her she did not require a defibrillator. The patient was admitted with left lower quadrant pain and found to have acute diverticulitis. While on telemetry she had a regular tachycardia at about 130 beats per minute with the same Q-R-S complex as her baseline. She is currently in sinus rhythm and there was no 12-lead performed during this episode. All I have to review is a telemetry strip. Furthermore, her room has changed so I cannot review the prior arrhythmia as that telemetry has been cleared. She is currently asymptomatic from a cardiac standpoint, denying chest pain, shortness of breath, lightheadedness, dizziness, or palpitations. PAST MEDICAL HISTORY: 1. Sarcoidosis. 2. Anxiety. 3. Depression. 4. Hyperlipidemia. 5. COPD. 6. Diabetes. 7. Hypothyroidism. CURRENT MEDICATIONS: 1. Levaquin. 2. Zithromax 250 milligrams daily. 3. Myambutol. 4. Coreg 3.125 milligrams twice a day. 5. Effexor 75 milligrams daily. 6. Klonopin 0.5 milligrams a day. 7. Pravachol 80 milligrams at bedtime. 8. Pepcid 20 milligrams twice a day. ALLERGIES: Allergies are multiple. Please see the electronic medical record. PHYSICAL EXAMINATION: VITAL SIGNS: Afebrile, pulse 100, respiratory rate 17, blood pressure 81/48 satting 96% on two liters. GENERAL: In general, this is a very pleasant-appearing woman in no distress. NECK: No jugular venous distention. LUNGS: Clear to auscultation bilaterally. CARDIOVASCULAR: Regular rate and rhythm. No murmurs appreciated. ABDOMEN: Benign. EXTREMITIES: No edema. LABORATORY DATA: White count 6.86, hematocrit 32.0, platelets 207,000. Sodium 142, potassium 3.7, chloride 107, bicarb 26.2, BUN 13, creatinine 0.97, glucose 98. BNP is 439. IMAGING STUDIES: Abdomen and pelvis CT consistent with diverticulitis. CARDIOLOGY STUDIES: EKG shows sinus rhythm with right bundle-branch block and left anterior fascicular block. Telemetry showed a regular rhythm with the same baseline Q-R-S complex at about 135 beats per minute. The etiologies include SVT versus sinus tachycardia versus an atypical atrial flutter. IMPRESSION: 1. Arrhythmia. It is fairly difficult to ascertain the patient's arrhythmia as I do not have more access, but she is being monitored on telemetry so should she have a recurrence, we will be able to make a better diagnosis. There are reports of her becoming tachycardic upon standing, which would be more consistent with a sinus tachycardia likely due to dehydration and her ongoing infectious process. I would consider an outpatient loop recorder insertion should more significant arrhythmias be seen while she is on telemetry or if concern for atrial fibrillation / flutter remains as she has already had an outpatient long-term monitor. Currently she is in normal sinus rhythm asymptomatic from a cardiac standpoint so will not make any changes at this time. Thank you again for the opportunity to participate in this patient's care. MD SULEIMAN Gamez/SWAPNA /11:12 AM /3:00 PM
[2016-07-16] MEDS: ASPIRIN EC 81 MG TABEC PO SCH (20:17)
[2016-07-16] MEDS: PRAVASTATIN SOD 80 MG TAB PO SCH (20:17)
[2016-07-16] MEDS: clonazePAM 0.5 MG TAB PO SCH (20:17)
[2016-07-17] VITALS (18 sets, daily range): BP systolic 87–143; BP diastolic 53–70; PULSE 66–85; RESP 16–20; TEMP 96.4–98.4; O2SAT 94–100
[2016-07-17] MEDS: NS + KCL 20 MEQ INJ 1,000 ML IV SCH ×3 (01:06→17:19)
[2016-07-17] MEDS: LEVOTHYROXINE SODIUM 100 MCG TAB PO SCH (05:05)
[2016-07-17] MEDS: HEPARIN SODIUM - SQ 10,000 UNITS/ML VIAL SQ SCH ×2 (05:06→17:33)
[2016-07-17] MEDS: metroNIDAZOLE 500 MG INJ 100 ML IV SCH ×3 (05:06→21:04)
[2016-07-17 07:01] LABS: AUTOMATED NEUTROPHIL # 3.4 TH/MM3 (1.8-7.7); BASOPHIL % 0.5 % (0.0-2.0); EOSINOPHIL # 0.3 TH/MM3 (0-0.4); EOSINOPHIL % 4.5 % (0.0-4.0); HEMATOCRIT 30.8 % (35.0-46.0); HEMO FLAGS DIFF FINAL; LYMPHOCYTE # 1.4 TH/MM3 (1.0-4.8); MEAN CELL VOLUME 89.4 FL (80.0-100.0); MEAN CORPUSCULAR HEMOGLOBIN 29.1 PG (27.0-34.0); MEAN CORPUSCULAR HGB CONC 32.5 % (32.0-36.0); MONO % 11.2 % (0.0-8.0); NEUT % 59.8 % (16.0-70.0); PLATELET COUNT 183 TH/MM3 (150-450); RED BLOOD COUNT 3.44 MIL/MM3 (4.00-5.30); RED CELL DISTRIBUTION WIDTH 15.2 % (11.6-17.2); WHITE BLOOD COUNT 5.6 TH/MM3 (4.0-11.0)
[2016-07-17 07:07] LABS: BICARBONATE 24.6 MEQ/L (21.0-32.0); MAGNESIUM 1.8 MG/DL (1.5-2.5); POTASSIUM 4.1 MEQ/L (3.5-5.1)
[2016-07-17] MEDS: RESP: ALBUTEROL 2.5 MG/3 ML NEB (SCH) NEB (07:36)
[2016-07-17] MEDS: FAMOTIDINE 20 MG TAB PO SCH ×2 (09:00→21:04)
[2016-07-17] MEDS: AZITHROMYCIN 250 MG TAB PO SCH (09:31)
[2016-07-17] MEDS: CYANOCOBALAMIN 1,000 MCG TAB PO SCH (09:32)
[2016-07-17] MEDS: VENLAFAXINE HCL XR 75 MG CAP PO SCH (09:32)
[2016-07-17] MEDS: FLUTICASONE 100 MCG/VILANTEROL 25 MCG INHALER INH SCH (09:32)
[2016-07-17] MEDS: CARVEDILOL 3.125 MG TAB PO SCH ×2 (09:32→21:00)
[2016-07-17] MEDS: ETHAMBUTOL HCL 400 MG TAB PO SCH (09:47)
--- NOTE | 2016-07-17 10:02 | HHI.PR ---
Subjective Remarks Follow-up diverticulitis, arrhythmia, hypotension. The patient is reporting continued left lower quadrant pain. Also coughing now. Cough is nonproductive. Denies chest pain or dyspnea. Objective Vitals Vital Signs Date Time Temp Pulse Resp B/P Pulse Ox O2 Delivery O2 Flow Rate FiO2 07/17/16 07:36 95 Nasal Cannula 2.00 07/17/16 03:30 Nasal Cannula 2.00 07/17/16 03:30 97.6 76 16 105/57 98 07/17/16 03:00 Nasal Cannula 2.00 07/16/16 23:20 97.6 93 20 118/69 97 07/16/16 23:20 Nasal Cannula 2.00 07/16/16 20:00 98.3 90 19 101/63 96 07/16/16 20:00 96 Nasal Cannula 2.00 07/16/16 18:51 18 07/16/16 18:00 98 07/16/16 17:12 98 Nasal Cannula 2.00 07/16/16 17:00 96 07/16/16 16:00 90 07/16/16 15:11 97.3 93 18 91/60 90 07/16/16 15:00 87 07/16/16 14:00 93 07/16/16 13:00 94 07/16/16 12:00 92 07/16/16 11:00 97.8 84 18 104/67 98 Manual Cuff/Auscultation 07/16/16 11:00 87 I/O 07/16/16 07/16/16 07/16/16 07/17/16 07/17/16 07/17/16 07:00 15:00 23:00 07:00 15:00 23:00 Intake Total 1345 ml 120 ml 1174 ml 1349 ml Output Total 300 ml 700 ml 400 ml Balance 1045 ml 120 ml 474 ml 949 ml Intake Oral 120 ml 120 ml 840 ml IV Total 1225 ml 334 ml 1349 ml Output Urine Total 300 ml 700 ml 400 ml # Voids 3 # Bowel Movements 0 Result Diagram: 07/17/16 0540 07/17/16 0540 Imaging Last Impressions Chest X-Ray 07/15/16 1302 Signed Impressions: Service Date/Time: Friday, July 15, 2016 13:13 - CONCLUSION: Chronic infiltrate in the right upper lobe unchanged since June. Alpesh Pham MD Objective Remarks General: No acute distress. Heart: Tachycardic. No murmur. Lungs: Scattered wheeze. Breathing is nonlabored. Abdomen: Soft, tender to palpation in the left lower quadrant, nondistended. Extremities: No lower extremity edema. Psych: Alert and oriented. 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 Acute diverticulitis: Continue pain control, antibiotics, IV fluids. Clear liquid diet. 2. Arrhythmia: Appears to be sinus arrhythmia. Patient denies cardiac history. Appreciate cardiology recommendations. 3. Hypothyroidism: Continue Synthroid. 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 Continue current medications. 5. Hypertension: Blood pressure is now low. Hold losartan. Continue lower dose carvedilol. IV fluids. 6. Diabetes mellitus: Hold metformin. Monitor Accu-Cheks and cover with sliding scale insulin. 7. Hyperlipidemia: Continue statin. 8. DVT prophylaxis: Heparin. 9. CODE STATUS: Full code. Patient states that she does not want to be maintained long-term on ventilator. 10. Cough: Add benzonatate. Incentive spirometry. Bronchodilators as needed. Forrest Aceves MD Jul 17, 2016 10:02
--- NOTE | 2016-07-17 10:02 | PD.CARD.PN ---
Subjective Subjective Remarks No events on tele; pt still w/ abdm pain. Objective Medications Administered Medications Medications (Trade) Dose Ordered Sig/Crow Route PRN Reason Start Time Stop Time Status Last Admin Dose Admin Heparin Sodium (Porcine) (Heparin Inj) 5,000 units Q12H SQ 07/15/16 18:00 07/17/16 05:06 Morphine Sulfate 2 mg 2 mg Q3H PRN IV PUSH Pain 3-8 07/15/16 17:00 07/16/16 18:46 Levofloxacin/ Dextrose 150 ml @ 100 mls/hr Q24H IV 07/16/16 13:00 07/16/16 13:35 Metronidazole (Flagyl 500 Mg Inj) 100 ml @ 100 mls/hr Q8H IV 07/15/16 21:00 07/17/16 05:06 Aspirin (Ecotrin Ec) 81 mg HS PO 07/15/16 21:00 07/16/16 20:17 Azithromycin (Zithromax) 250 mg DAILY PO 07/16/16 09:00 07/17/16 09:31 Clonazepam (KlonoPIN) 0.5 mg HS PO 07/15/16 21:00 07/16/16 20:17 Cyanocobalamin (Vitamin B12) 1,000 mcg DAILY PO 07/16/16 09:00 07/17/16 09:32 Ethambutol HCl (Myambutol) 1,000 mg DAILY PO 07/16/16 09:00 07/17/16 09:47 Fluticasone/ Vilanterol (Breo Ellipta 100-25 Inh) 1 puff DAILY INH 07/16/16 09:00 07/17/16 09:32 Levothyroxine Sodium (Synthroid) 100 mcg DAILY@06 PO 07/16/16 06:00 07/17/16 05:05 Pravastatin Sodium (Pravachol) 80 mg HS PO 07/15/16 21:00 07/16/16 20:17 Venlafaxine HCl (Effexor Xr) 75 mg DAILY PO 07/16/16 09:00 07/17/16 09:32 Carvedilol 3.125 mg 3.125 mg BID PO 07/16/16 09:00 07/17/16 09:32 Potassium Chloride/Sodium Chloride (NS + KCl 20 Meq Inj) 1,000 ml @ 125 mls/hr Q8H IV 07/16/16 09:00 07/17/16 05:06 Famotidine (Pepcid) 10 mg BID PO 07/16/16 21:00 07/16/16 20:17 Vital Signs / I&O Vital Signs Date Time Temp Pulse Resp B/P Pulse Ox O2 Delivery O2 Flow Rate FiO2 07/17/16 07:36 95 Nasal Cannula 2.00 07/17/16 03:30 Nasal Cannula 2.00 07/17/16 03:30 97.6 76 16 105/57 98 07/17/16 03:00 Nasal Cannula 2.00 07/16/16 23:20 97.6 93 20 118/69 97 07/16/16 23:20 Nasal Cannula 2.00 07/16/16 20:00 98.3 90 19 101/63 96 07/16/16 20:00 96 Nasal Cannula 2.00 07/16/16 18:51 18 07/16/16 18:00 98 07/16/16 17:12 98 Nasal Cannula 2.00 07/16/16 17:00 96 07/16/16 16:00 90 07/16/16 15:11 97.3 93 18 91/60 90 07/16/16 15:00 87 07/16/16 14:00 93 07/16/16 13:00 94 07/16/16 12:00 92 07/16/16 11:00 97.8 84 18 104/67 98 Manual Cuff/Auscultation 07/16/16 11:00 87 I/O 07/16/16 07/16/16 07/16/16 07/17/16 07/17/16 07/17/16 07:00 15:00 23:00 07:00 15:00 23:00 Intake Total 1345 ml 120 ml 1174 ml 1349 ml Output Total 300 ml 700 ml 400 ml Balance 1045 ml 120 ml 474 ml 949 ml Intake Oral 120 ml 120 ml 840 ml IV Total 1225 ml 334 ml 1349 ml Output Urine Total 300 ml 700 ml 400 ml # Voids 3 # Bowel Movements 0 Physical Exam GENERAL: This is a well-nourished, well-developed patient, in no apparent distress. CARDIOVASCULAR: Regular rate and rhythm without murmurs, gallops, or rubs. RESPIRATORY: Clear to auscultation. Breath sounds equal bilaterally. No wheezes , rales, or rhonchi. GASTROINTESTINAL: Abdomen soft, tender MUSCULOSKELETAL: Extremities without clubbing, cyanosis, or edema. NEURO: Alert & Oriented x4 to person, place, time, situation. Moves all ext x4 Laboratory Laboratory Tests Test 07/17/16 05:40 White Blood Count 5.6 TH/MM3 Red Blood Count 3.44 MIL/MM3 Hemoglobin 10.0 GM/DL Hematocrit 30.8 % Mean Corpuscular Volume 89.4 FL Mean Corpuscular Hemoglobin 29.1 PG Mean Corpuscular Hemoglobin 32.5 % Concent Red Cell Distribution Width 15.2 % Platelet Count 183 TH/MM3 Mean Platelet Volume 8.4 FL Neutrophils (%) (Auto) 59.8 % Lymphocytes (%) (Auto) 24.0 % Monocytes (%) (Auto) 11.2 % Eosinophils (%) (Auto) 4.5 % Basophils (%) (Auto) 0.5 % Neutrophils # (Auto) 3.4 TH/MM3 Lymphocytes # (Auto) 1.4 TH/MM3 Monocytes # (Auto) 0.6 TH/MM3 Eosinophils # (Auto) 0.3 TH/MM3 Basophils # (Auto) 0.0 TH/MM3 CBC Comment DIFF FINAL Differential Comment Sodium Level 142 MEQ/L Potassium Level 4.1 MEQ/L Chloride Level 111 MEQ/L Carbon Dioxide Level 24.6 MEQ/L Anion Gap 6 MEQ/L Blood Urea Nitrogen 10 MG/DL Creatinine 0.98 MG/DL Estimat Glomerular Filtration 56 ML/MIN Rate Random Glucose 97 MG/DL Calcium Level 8.2 MG/DL Magnesium Level 1.8 MG/DL Imaging Last Impressions Chest X-Ray 07/15/16 1302 Signed Impressions: Service Date/Time: Friday, July 15, 2016 13:13 - CONCLUSION: Chronic infiltrate in the right upper lobe unchanged since June. Alpesh Pham MD Assessment and Plan Problem List: (1) CHF (congestive heart failure) Assessment and Plan: seems dry, agree w/ gentle hydration but watch for chf. (2) Arrhythmia Assessment and Plan: Likley sinus tachy from dehydration/diverticulitis, no events on tele, will consider outpt loop recorder once infectious issues resolved (3) Sarcoidosis Assessment and Plan: workup at [facility], records pending Assessment and Plan Cardiac issues stable, will sign off, please call with questions. Acosta Mendez MD Jul 17, 2016 10:02
[2016-07-17] MEDS ORDERED: BENZONATATE 100 MG CAP PO PRN (10:45)
[2016-07-17] MEDS: ACETAMINOPHEN/HYDROcodone 325 MG/7.5 MG TAB PO PRN ×2 (11:26→22:02)
[2016-07-17] MEDS ORDERED: MORPHINE SULFATE 4 MG/ML INJ IV PUSH PRN (12:00)
[2016-07-17] MEDS ORDERED: RESP: ALBUTEROL 2.5 MG/3 ML NEB (PRN) NEB (12:00)
[2016-07-17] MEDS: LEVOFLOXACIN 750 MG PREMIX INJ 150 ML IV SCH (13:35)
[2016-07-17] MEDS: ACETAMINOPHEN/HYDROcodone 325 MG/5 MG TAB PO PRN (17:33)
[2016-07-17] MEDS: PRAVASTATIN SOD 80 MG TAB PO SCH (21:02)
[2016-07-17] MEDS: ASPIRIN EC 81 MG TABEC PO SCH (21:03)
[2016-07-17] MEDS: clonazePAM 0.5 MG TAB PO SCH (21:03)
[2016-07-18] VITALS (18 sets, daily range): BP systolic 98–143; BP diastolic 53–76; PULSE 31–101; RESP 16–21; TEMP 96.3–98; O2SAT 94–100
[2016-07-18] MEDS: NS + KCL 20 MEQ INJ 1,000 ML IV SCH (01:15)
[2016-07-18 04:13] LABS: AUTOMATED NEUTROPHIL # 2.6 TH/MM3 (1.8-7.7); BASOPHIL % 0.4 % (0.0-2.0); EOSINOPHIL # 0.3 TH/MM3 (0-0.4); EOSINOPHIL % 5.7 % (0.0-4.0); HEMATOCRIT 33.8 % (35.0-46.0); HEMO FLAGS DIFF FINAL; LYMPH % 30.7 % (9.0-44.0); LYMPHOCYTE # 1.6 TH/MM3 (1.0-4.8); MEAN CELL VOLUME 90.3 FL (80.0-100.0); MEAN CORPUSCULAR HEMOGLOBIN 28.6 PG (27.0-34.0); MEAN CORPUSCULAR HGB CONC 31.7 % (32.0-36.0); MONO % 13.5 % (0.0-8.0); NEUT % 49.7 % (16.0-70.0); PLATELET COUNT 217 TH/MM3 (150-450); RED BLOOD COUNT 3.74 MIL/MM3 (4.00-5.30); RED CELL DISTRIBUTION WIDTH 15.8 % (11.6-17.2); WHITE BLOOD COUNT 5.2 TH/MM3 (4.0-11.0)
[2016-07-18] MEDS: metroNIDAZOLE 500 MG INJ 100 ML IV SCH ×3 (05:42→20:55)
[2016-07-18] MEDS: HEPARIN SODIUM - SQ 10,000 UNITS/ML VIAL SQ SCH (05:42)
[2016-07-18] MEDS: LEVOTHYROXINE SODIUM 100 MCG TAB PO SCH (05:43)
--- NOTE | 2016-07-18 06:12 | RADRPT ---
EXAM DATE/TIME: 07/18/2016 05:49 [facility] COMPARISON: CHEST PA & LAT, October 11, 2015, 15:02. CHEST SINGLE AP, June 04, 2016, 13:29. CHEST SINGLE AP, October 13, 2015, 8:18. CHEST SINGLE AP, July 15, 2016, 13:13. INDICATIONS : Short of breath, evaluate for pulmonary edema MEDICAL HISTORY : Congestive heart failure. Chronic obstructive pulmonary disease. Gastroesophageal reflux disease. SURGICAL HISTORY : Appendectomy. Cholecystectomy. Tubal ligation. right hip replacement ENCOUNTER: Subsequent ACUITY: 4 - 6 days PAIN SCORE: 2/10 LOCATION: Bilateral chest FINDINGS: There is persistent irregular pleuroparenchymal density at the right apex. Active disease as potentia lly with tuberculosis should be considered. There is mild streaky parenchymal opacity in the lung bas es. Minimal blunting of the right costophrenic angle may be small effusion. Heart size and mediastina l contours are are stable. CONCLUSION: Irregular right apical pleural parenchymal density and mild streaky opacities in the bases. Emiliano Clement MD on July 18, 2016 at 6:08 Board Certified Radiologist. This report was verified electronically.
[2016-07-18] MEDS ORDERED: ATROPINE SULFATE 0.4 MG/ML VIAL IV PUSH PRN (07:15)
[2016-07-18 07:28] LABS: BICARBONATE 19.6 MEQ/L (21.0-32.0); MAGNESIUM 1.7 MG/DL (1.5-2.5); POTASSIUM 4.9 MEQ/L (3.5-5.1)
--- NOTE | 2016-07-18 08:24 | PD.CARD.PN ---
Subjective Subjective Remarks Called to see pt for severe bradycardia, found to be in CHB. Objective Medications Administered Medications Medications (Trade) Dose Ordered Sig/Crow Route PRN Reason Start Time Stop Time Status Last Admin Dose Admin Ondansetron HCl (Zofran Inj) 4 mg Q6H PRN IVP NAUSEA OR VOMITING 07/15/16 17:00 07/18/16 06:13 Heparin Sodium (Porcine) 5000 units 5,000 units Q12H SQ 07/15/16 18:00 07/18/16 05:42 Levofloxacin/ Dextrose 150 ml @ 100 mls/hr Q24H IV 07/16/16 13:00 07/17/16 13:35 Metronidazole (Flagyl 500 Mg Inj) 100 ml @ 100 mls/hr Q8H IV 07/15/16 21:00 07/18/16 05:42 Aspirin (Ecotrin Ec) 81 mg HS PO 07/15/16 21:00 07/17/16 21:03 Azithromycin (Zithromax) 250 mg DAILY PO 07/16/16 09:00 Hold 07/17/16 09:31 Clonazepam (KlonoPIN) 0.5 mg HS PO 07/15/16 21:00 07/17/16 21:03 Cyanocobalamin (Vitamin B12) 1,000 mcg DAILY PO 07/16/16 09:00 07/17/16 09:32 Ethambutol HCl (Myambutol) 1,000 mg DAILY PO 07/16/16 09:00 07/17/16 09:47 Fluticasone/ Vilanterol (Breo Ellipta 100-25 Inh) 1 puff DAILY INH 07/16/16 09:00 07/17/16 09:32 Levothyroxine Sodium (Synthroid) 100 mcg DAILY@06 PO 07/16/16 06:00 07/18/16 05:43 Pravastatin Sodium (Pravachol) 80 mg HS PO 07/15/16 21:00 07/17/16 21:02 Venlafaxine HCl (Effexor Xr) 75 mg DAILY PO 07/16/16 09:00 07/17/16 09:32 Carvedilol 3.125 mg 3.125 mg BID PO 07/16/16 09:00 Hold 07/17/16 09:32 Potassium Chloride/Sodium Chloride (NS + KCl 20 Meq Inj) 1,000 ml @ 125 mls/hr Q8H IV 07/16/16 09:00 07/18/16 01:15 Famotidine (Pepcid) 10 mg BID PO 07/16/16 21:00 07/17/16 21:04 Acetaminophen/ Hydrocodone Bitart ([place] 5-325 Mg) 1 tab Q4H PRN PO PAIN SCALE 3 TO 6 07/17/16 11:00 07/17/16 17:33 Acetaminophen/ Hydrocodone Bitart ([place] 7.5-325 Mg) 1 tab Q4H PRN PO PAIN SCALE 7 TO 10 07/17/16 11:00 07/17/16 22:02 Vital Signs / I&O Vital Signs Date Time Temp Pulse Resp B/P Pulse Ox O2 Delivery O2 Flow Rate FiO2 07/18/16 05:28 96.3 43 21 98/53 94 07/18/16 04:02 97.2 67 18 122/64 97 07/18/16 00:18 16 07/17/16 22:12 96.4 78 18 123/67 100 07/17/16 21:59 78 07/17/16 21:59 Nasal Cannula 3.00 21 07/17/16 20:14 21 07/17/16 20:00 82 07/17/16 19:00 95 Room Air 07/17/16 19:00 82 07/17/16 18:00 82 07/17/16 17:00 85 07/17/16 16:00 80 07/17/16 15:00 94 3.00 07/17/16 15:00 66 07/17/16 15:00 98.4 68 19 143/70 94 07/17/16 14:00 76 07/17/16 13:00 79 07/17/16 12:00 81 07/17/16 11:00 97.6 70 17 110/70 100 07/17/16 11:00 66 07/17/16 11:00 98 Room Air 07/17/16 10:00 81 07/17/16 09:00 76 I/O 07/17/16 07/17/16 07/17/16 07/18/16 07/18/16 07/18/16 07:00 15:00 23:00 07:00 15:00 23:00 Intake Total 1349 ml 2880 ml 360 ml Output Total 400 ml 600 ml Balance 949 ml 2880 ml -240 ml Intake Oral 1680 ml 360 ml IV Total 1349 ml 1200 ml Output Urine Total 400 ml 600 ml # Voids 4 Physical Exam GENERAL: This is a well-nourished, well-developed patient, in no apparent distress. CARDIOVASCULAR: Gaurav, regular RESPIRATORY: Clear to auscultation. Breath sounds equal bilaterally. No wheezes , rales, or rhonchi. GASTROINTESTINAL: Abdomen soft, tender MUSCULOSKELETAL: Extremities without clubbing, cyanosis, or edema. NEURO: Alert & Oriented x4 to person, place, time, situation. Moves all ext x4 Laboratory Laboratory Tests Test 07/18/16 07/18/16 03:23 06:49 White Blood Count 5.2 TH/MM3 Red Blood Count 3.74 MIL/MM3 Hemoglobin 10.7 GM/DL Hematocrit 33.8 % Mean Corpuscular Volume 90.3 FL Mean Corpuscular Hemoglobin 28.6 PG Mean Corpuscular Hemoglobin 31.7 % Concent Red Cell Distribution Width 15.8 % Platelet Count 217 TH/MM3 Mean Platelet Volume 8.4 FL Neutrophils (%) (Auto) 49.7 % Lymphocytes (%) (Auto) 30.7 % Monocytes (%) (Auto) 13.5 % Eosinophils (%) (Auto) 5.7 % Basophils (%) (Auto) 0.4 % Neutrophils # (Auto) 2.6 TH/MM3 Lymphocytes # (Auto) 1.6 TH/MM3 Monocytes # (Auto) 0.7 TH/MM3 Eosinophils # (Auto) 0.3 TH/MM3 Basophils # (Auto) 0.0 TH/MM3 CBC Comment DIFF FINAL Differential Comment Sodium Level 142 MEQ/L Potassium Level 4.9 MEQ/L Chloride Level 114 MEQ/L Carbon Dioxide Level 19.6 MEQ/L Anion Gap 8 MEQ/L Blood Urea Nitrogen 9 MG/DL Creatinine 1.02 MG/DL Estimat Glomerular Filtration 54 ML/MIN Rate Random Glucose 139 MG/DL Calcium Level 8.3 MG/DL Magnesium Level 1.7 MG/DL Total Creatine Kinase 75 U/L Troponin I 0.03 NG/ML Imaging Last Impressions Chest X-Ray 07/18/16 0000 Signed Impressions: Service Date/Time: Monday, July 18, 2016 05:49 - CONCLUSION: Irregular right apical pleural parenchymal density and mild streaky opacities in the bases. Emiliano Clement MD Assessment and Plan Problem List: (1) Complete heart block Assessment and Plan: found to have chb, for PPM today by Dr. Fontanez, transvenous pacer now by Dr. Golden. (2) CHF (congestive heart failure) Assessment and Plan: gentle hydration to continue. (3) Arrhythmia Assessment and Plan: now found to have CHB. (4) Sarcoidosis Assessment and Plan: workup at [facility], likely cause of pt's chb. Acosta Mendez MD Jul 18, 2016 08:24
[2016-07-18] MEDS ORDERED: ONDANSETRON HCL 4 MG/2 ML VIAL ONE (08:32)
--- NOTE | 2016-07-18 08:39 | HHI.PR ---
Subjective Remarks Follow up diverticulitis, bradycardia. The patient had a significant episode of bradycardia this morning with a rate below 30. She was transferred to [facility] and cardiology was contacted. Temporary pacemaker was placed this morning and permanent pacemaker placement is planned for this afternoon. She states that she feels much better now than she did this morning. Still having left lower quadrant pain. Also reporting midepigastric tenderness. She states that she had a colonoscopy last April, but does not recall the name of her toll service observer. Her daughter will contact her PCP to find out the name of her toll service observer. Objective Vitals Vital Signs Date Time Temp Pulse Resp B/P Pulse Ox O2 Delivery O2 Flow Rate FiO2 07/18/16 05:28 96.3 43 21 98/53 94 07/18/16 04:02 97.2 67 18 122/64 97 07/18/16 00:18 16 07/17/16 22:12 96.4 78 18 123/67 100 07/17/16 21:59 78 07/17/16 21:59 Nasal Cannula 3.00 21 07/17/16 20:14 21 07/17/16 20:00 82 07/17/16 19:00 95 Room Air 07/17/16 19:00 82 07/17/16 18:00 82 07/17/16 17:00 85 07/17/16 16:00 80 07/17/16 15:00 94 3.00 07/17/16 15:00 66 07/17/16 15:00 98.4 68 19 143/70 94 07/17/16 14:00 76 07/17/16 13:00 79 07/17/16 12:00 81 07/17/16 11:00 97.6 70 17 110/70 100 07/17/16 11:00 66 07/17/16 11:00 98 Room Air 07/17/16 10:00 81 07/17/16 09:00 76 I/O 07/17/16 07/17/16 07/17/16 07/18/16 07/18/16 07/18/16 07:00 15:00 23:00 07:00 15:00 23:00 Intake Total 1349 ml 2880 ml 360 ml Output Total 400 ml 600 ml Balance 949 ml 2880 ml -240 ml Intake Oral 1680 ml 360 ml IV Total 1349 ml 1200 ml Output Urine Total 400 ml 600 ml # Voids 4 Result Diagram: 07/18/16 0323 07/18/16 0649 Imaging Last Impressions Chest X-Ray 07/18/16 0000 Signed Impressions: Service Date/Time: Monday, July 18, 2016 05:49 - CONCLUSION: Irregular right apical pleural parenchymal density and mild streaky opacities in the bases. Emiliano Clement MD Objective Remarks General: No acute distress. Heart: Tachycardic. No murmur. Lungs: Scattered wheeze. Breathing is nonlabored. Abdomen: Soft, tender to palpation in the left lower quadrant, nondistended. Extremities: No lower extremity edema. Psych: Alert and oriented. 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 Acute diverticulitis: Continue pain control, antibiotics, IV fluids. Clear liquid diet. 2. Bradycardia: Patient in complete heart block. Temporary pacemaker placed this morning. Permanent pacemaker placement today per cardiology. 3. Hypothyroidism: Continue Synthroid. 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 Continue current medications. Consult infectious disease. 5. Hypertension: Blood pressure is now low. Hold losartan. Continue lower dose carvedilol. IV fluids. 6. Diabetes mellitus: Hold metformin. Monitor Accu-Cheks and cover with sliding scale insulin. 7. Hyperlipidemia: Continue statin. 8. DVT prophylaxis: Heparin. 9. CODE STATUS: Full code. Patient states that she does not want to be maintained long-term on ventilator. 10. Cough: Continue benzonatate. Incentive spirometry. Bronchodilators as needed. Chest x-ray this morning showed irregular right apical pleural- parenchymal density and mild streaky opacities in the bases. Consider chest CT if no improvement. Forrest Aceves MD Jul 18, 2016 08:39
[2016-07-18] MEDS ORDERED: HEPARIN-NS/PF INJ 500 ML ONE (08:50)
[2016-07-18] MEDS ORDERED: MIDAZOLAM HCL 2 MG/2 ML VIAL ONE ×2 (08:54→13:22)
[2016-07-18] MEDS: FLUTICASONE 100 MCG/VILANTEROL 25 MCG INHALER INH SCH (09:00)
[2016-07-18] MEDS: CYANOCOBALAMIN 1,000 MCG TAB PO SCH (09:43)
[2016-07-18] MEDS: FAMOTIDINE 20 MG TAB PO SCH ×2 (09:43→20:53)
[2016-07-18] MEDS: VENLAFAXINE HCL XR 75 MG CAP PO SCH (09:43)
[2016-07-18] MEDS: ETHAMBUTOL HCL 400 MG TAB PO SCH (09:43)
[2016-07-18] MEDS ORDERED: SODIUM CHLOR 0.9% 1000 ML INJ 1,000 ML IV SCH (09:45)
[2016-07-18] MEDS: ACETAMINOPHEN/HYDROcodone 325 MG/7.5 MG TAB PO PRN (10:12)
[2016-07-18] MEDS: SODIUM CHLOR 0.9% 1000 ML INJ 500 ML IV SCH ×3 (12:30→19:10)
[2016-07-18] MEDS ORDERED: VANCOMYCIN INJ 1,000 MG in SODIUM CHLOR 0.9% 250 ML INJ 250 ML IV SCH (12:30)
--- NOTE | 2016-07-18 13:03 | MA ---
cc: ALEKS ESPINO DATE OF 1945 TODAY'S DATE July 18, 2016 PROCEDURE PERFORMED Insertion of a transvenous temporary pacemaker. INDICATION Complete third degree AV block. PROCEDURE DESCRIPTION Consent signed. The patient was brought into the cardiac laborer tree tapping in a fasting state. The right groin was prepped and draped in sterile fashion. Using 1% lidocaine for local anesthesia and a micropuncture kit, a 6-Wallisian sheath was inserted into the right femoral vein. Then a 5-Wallisian balloon balloon-guided temporary pacemaker was floated into the right ventricle under fluoroscopy and positioned in the right ventricle. The balloon was deflated. Then we proceeded to turn on the pacemaker and there was adequate capturing and sensing of the pacemaker and parameters were adjusted. Then the sheath and pacemaker was sutured in place. The patient tolerated the procedure well without complications. Estimated blood loss less than 10 cc. No contrast was used. CONCLUSION Successful placement of a transvenous temporary pacemaker to the right femoral vein in the setting of third degree AV block. PLAN The patient is scheduled for a permanent pacemaker with Dr. Jensen Fontanez this afternoon. MD PRIMITIVO [place]/SSB /9:30 AM /12:57 PM MTDD
[2016-07-18] MEDS ORDERED: VANCOMYCIN HCL 1000 MG VIAL ONE (13:37)
[2016-07-18] MEDS ORDERED: LIDOCAINE HCL 2% 50 ML VIAL ONE (13:37)
[2016-07-18] MEDS ORDERED: ceFAZolin INJ 1,000 MG VIAL ONE (13:37)
--- NOTE | 2016-07-18 13:42 | EKG ---
Date Performed: 07/18/2016 Time Performed: 06:15:06 PTAGE: 71 years EKG: Normal Sinus rhythm with complete AV block Slow junctional escape rhythm Right bundle branch block Left axis deviation C omplete AV block is new since the prior tracing. Abnormal ECG PREVIOUS TRACING : 07/16/2016 07.26 DOCTOR: Lincoln Alexis Interpretating Date/Time 07/18/2016 13:40:42
[2016-07-18] MEDS ORDERED: ZOLPIDEM TARTRATE 5 MG TAB PO PRN (14:45)
[2016-07-18] MEDS ORDERED: traMADol HCL 50 MG TAB PO PRN (14:45)
[2016-07-18] MEDS ORDERED: PROPOFOL 200 MG/20 ML AMP IV ONE (15:00)
[2016-07-18] MEDS: LEVOFLOXACIN 750 MG PREMIX INJ 150 ML IV SCH (15:23)
[2016-07-18] MEDS ORDERED: DO NOT ADM ANY ANTICOAGULANT DRUGS XX PRN (15:45)
--- NOTE | 2016-07-18 16:30 | RADRPT ---
EXAM DATE/TIME: 07/18/2016 15:31 [facility] COMPARISON: CHEST SINGLE AP, July 18, 2016, 5:49. INDICATIONS: Post pacemaker. MEDICAL HISTORY: Chronic obstructive pulmonary disease. MAC virus in her right lung SURGICAL HISTORY: None. ENCOUNTER: Initial ACUITY: 4 - 6 days PAIN SCORE: 0/10 LOCATION: Bilateral chest FINDINGS: The patient has a bi-lead pacemaker in place from the left subclavian approach. The heart size is no rmal. There is increased density at the right upper lung and right base. There is some minimal incr eased density in the left base at the retrocardiac area. The costophrenic angles are grossly clear a lthough there does appear to be some pleural thickening seen over the superior lateral right upper ch est. CONCLUSION: 1. Areas of suspected consolidation or atelectasis in the right upper lobe and at the bases bilatera lly being more prominent on the right. 2. New pacemaker in place from the left subclavian position that appears well placed. A pneumothora x is not present. Emiliano Espinoza MD on July 18, 2016 at 16:18 Board Certified Radiologist. This report was verified electronically.
--- NOTE | 2016-07-18 16:35 | MB ---
cc: MAIKEL FONTANEZ M.D. DATE OF CONSULTATION 07/18/2016 Interventional cardiology consult note. REASON FOR CONSULTATION Permanent pacemaker implantation. HISTORY OF PRESENT ILLNESS The patient is a 71-year-old white female, followed in our office by Dr. Acosta Mendez, with a history of multiple medical problems including diabetes, hypertension, sarcoidosis, COPD, mild nonischemic cardiomyopathy who was admitted with abdominal pain. CT of the abdomen suggested diverticulitis. Since coming into hospital she states her abdominal pain has mildly improved. This morning she denies nausea, vomiting, diarrhea, fevers, chest pain, shortness of breath, lightheadedness, syncope, near-syncope. On monitoring this morning she developed complete heart block with heart rates in the 20s. The patient states at times at home she does experience mild to moderate lightheadedness which lasts a few minutes. She cannot recall any episodes of syncope. She does feel "very uncomfortable" at this time although she is unable to specify symptomatology. PAST MEDICAL HISTORY 1. COPD. 2. Gastroesophageal reflux disease. 3. Hyperthyroidism, status post thyroidectomy 2013 resulting in hypothyroidism. 4. Diabetes. 5. Hypertension. 6. Hyperlipidemia. 7. Sarcoidosis. 8. Coronary artery disease with heart catheterization 07/14/2015 showing 30-40% proximal LAD stenosis, otherwise normal coronary arteries. 9. Nonischemic cardiomyopathy with ejection fraction of 30-35% by cardiac catheterization 07/14/2015. A subsequent echo about 2 months later reportedly showed ejection fraction 45%. MEDICATIONS Cardiac medications at home: 1. Pravastatin 80 mg q.h.s. 2. Losartan 25 mg daily. 3. Lasix 20 milligrams daily. 4. Carvedilol 6.25 mg b.i.d. 5. Aspirin 81 mg q.h.s. ALLERGIES ALLOPURINOL, SULFA, OXYCODONE, CEPHALEXIN, TRIMETHOPRIM, METHIMZOLE, PROPANOLOL, PROPYLTHIOURACIL, MELOXICAM. FAMILY HISTORY Noncontributory. SOCIAL HISTORY The patient quit smoking many years ago. She denies alcohol abuse. REVIEW OF SYSTEMS As in the history of present illness otherwise negative or noncontributory. She also denies headache, visual changes, unilateral weakness or numbness, melena, bright red blood per rectum. PHYSICAL EXAMINATION VITAL SIGNS: Her blood pressure 105/55 with a pulse of 60, respiratory rate 18. GENERAL: She is a well-developed, well-nourished white female in no acute distress. HEENT/NECK: On HEENT examination jugular venous pressure is normal. Carotid pulses are 2+ bilaterally and without bruits. LUNGS: Examination of the chest reveals decreased breath sounds diffusely. CARDIOVASCULAR: On cardiac examination she has a very bradycardic regular rhythm without S3-S4 or murmur. ABDOMEN: On abdominal examination she has a soft abdomen. Aggressive palpation was not pursued. Bowel sounds are present. EXTREMITIES: Examination of extremities reveals no clubbing, cyanosis or edema. LABORATORY DATA Includes WBC 5.2, hemoglobin 10.7, platelets 217. Potassium 4.9, BUN 9, creatinine 1.02. CK 75. Troponin 0.03. INR 1.0. IMAGING Chest x-ray shows irregular right apical pleural parenchymal density and mild streaky opacities in the bases. IMPRESSION Complete heart block, severe bradycardia in this 71-year-old white female with a history of multiple medical problems including diabetes, sarcoidosis, hypothyroidism, COPD, mild nonischemic cardiomyopathy, coronary artery disease, now admitted with diverticulitis. At the present time she continues to have episodic complete heart block which results in heart rates in the 20s. Her blood pressure has been normal. The patient states she is "very uncomfortable" although she is unable to specify her symptoms. She has had no loss of consciousness. In light of the severe bradyarrhythmia, I would agree with the need for permanent pacemaker implantation. The nature of this procedure and potential risks including but not limited to cardiac perforation, pneumothorax, bleeding, infection have been outlined to the patient. She agrees to proceed. RECOMMENDATIONS Permanent pacemaker implantation today. Maikel Fontanez MD GHOtilio/KK /12:32 PM /4:07 PM MAIDA
--- NOTE | 2016-07-18 19:33 | MB ---
cc: FATUMA FERRO MD DATE OF CONSULTATION 07/18/[address] Aceves REASON FOR CONSULTATION Mycobacterium avium, diverticulitis. HISTORY OF PRESENT ILLNESS This is a 71-year-old white female who was admitted to the hospital after presenting to the emergency department on 07/15 with abdominal pain. The patient presented with left lower quadrant abdominal pain. She was evaluated with CT scan of the abdomen which showed diverticulitis. She is receiving pain medication and is also on antibiotics. The patient has MULTIPLE ANTIBIOTIC ALLERGIES. She has a history of pulmonary Mycobacterium avium infection and has been evaluated at [facility] and put on medication with antibiotics treatment which she has been receiving since January 2016. She was on Amikacin intravenous along with ethambutol and azithromycin. The amikacin was changed to aerosol. She started developing hoarseness of the voice. And stopped the aerosolized Amikacin two weeks ago. The patient is also diagnosed with sarcoidosis and it is felt that she may have pulmonary and probably cardiac involvement with sarcoidosis. She came in with pain on a scale of 10 over 10. She tells me that the pain is much improved. The patient was evaluated by cardiology for complete heart block and severe bradycardia. She went for permanent pacemaker implantation today. She is afebrile. White count is normal. Chest x-ray shows an irregular right apical pleural parenchymal density and mild streaky opacities in the lung bases. The patient has had no recent hemoptysis. PAST MEDICAL HISTORY 1. Pulmonary and cardiac sarcoidosis 2. MAC pulmonary infection 3. Arthritis, 4. Hyperlipidemia, 5. COPD, 6. Diabetes mellitus, 7. Hypothyroidism, 8. GERD, 9. Cholecystectomy, 10. Thyroidectomy, 11. Appendectomy, 12. Cardiac catheterization 13. Bladder sling 14. Left knee replacement 15. Right hip replacement 16. Right foot surgery, 17. Tubal ligation 18. Vocal cord surgery. ALLERGIES SULFA TRIMETHOPRIM CEPHALEXIN ALLOPURINOL MELOXICAM METHIMAZOLE OXYCODONE PROPRANOLOL PROPYLTHIOURACIL RAMUCIRUMAB ETHAMBUTOL SULFA TRIMETHOPRIM MEDICATIONS 1. Vancomycin 2. [place] 5 3. Pepcid 4. Levaquin 5. Ellipta 6. Breo 7. Effexor 8. Metronidazole 9. Synthroid 10. Ecotrin 11. Klonopin 12. Pravachol. SOCIAL HISTORY No tobacco use. The patient is a former smoker. No alcohol use. No illicit drugs. FAMILY HISTORY Noncontributory. REVIEW OF SYSTEMS Significant for night sweats, abdominal pain. PHYSICAL EXAMINATION GENERAL: This is a well-developed pleasant female in no acute distress. She is awake and alert and oriented. VITAL SIGNS: Temperature 97.5, BP 143/76, respirations 18, heart rate 76. HEENT: Extraocular movements grossly intact, pupils reactive to light. No icterus. Nose without bleeding or swelling or drainage. Oropharynx - no visible lesions. NECK: Supple without adenopathy. LUNGS: Decreased breath sounds throughout. HEART: Regular S1-S2 without audible murmurs, rubs or gallops. ABDOMEN: Bowel sounds present, soft, nontender. RECTAL: Not performed. EXTREMITIES: No clubbing or cyanosis or edema. SKIN: No rash. NEUROLOGIC: Alert and oriented without focal findings. PSYCHIATRIC: The patient calm and cooperative. LABORATORY DATA WBC 5.2, platelets 217, hemoglobin 10.7, creatinine 1.02, BUN nine, sodium 142, estimated GFR 54. IMPRESSION 1. Acute diverticulitis. 2. Pulmonary MAC with cavitation. RECOMMENDATIONS 1. Continue the treatment for diverticulitis with Flagyl and Levaquin 2. Continue ethambutol for MAC. 3. Hold off on Amikacin for now. 4. Continue azithromycin for MAC. 5. Monitor clinical status Thank you for this consultation. The patient's progress will be monitored and further recommendations will be given on followup if necessary. Fatuma Ferro MD FD/ /5:16 PM /7:04 PM MTDAnnita
[2016-07-18] MEDS: ASPIRIN EC 81 MG TABEC PO SCH (20:53)
[2016-07-18] MEDS: PRAVASTATIN SOD 80 MG TAB PO SCH (20:54)
[2016-07-18] MEDS: MUPIROCIN 2% OINT 1 APPLIC/GM SYR EACH NARE SCH (20:54)
[2016-07-18] MEDS: ACETAMINOPHEN/HYDROcodone 325 MG/5 MG TAB PO PRN (20:54)
[2016-07-18] MEDS: clonazePAM 0.5 MG TAB PO SCH (20:54)
[2016-07-18] MEDS: POVIDONE IODINE 5% (ANTISEPSIS KIT) 4 APPLICATIONS TOPICAL SCH (21:00)
[2016-07-18] MEDS: CHLORHEXIDINE GLUCONATE 2 % 1 PACK (2 CLOTHS) TOPICAL SCH (21:00)
[2016-07-18] MEDS ORDERED: FUROSEMIDE 20 MG/2 ML VIAL IV PUSH ONE (22:00)
[2016-07-19] VITALS (21 sets, daily range): BP systolic 93–126; BP diastolic 53–89; PULSE 68–93; RESP 16–18; TEMP 97.5–98; O2SAT 93–99
[2016-07-19] MEDS ORDERED: VANCOMYCIN INJ 1,000 MG in SODIUM CHLOR 0.9% 250 ML INJ 250 ML IV ONE (02:45)
[2016-07-19] MEDS: ACETAMINOPHEN/HYDROcodone 325 MG/7.5 MG TAB PO PRN (03:04)
[2016-07-19] MEDS: metroNIDAZOLE 500 MG INJ 100 ML IV SCH ×3 (05:00→20:27)
[2016-07-19] MEDS: SODIUM CHLOR 0.9% 1000 ML INJ 500 ML IV SCH ×7 (05:10→21:50)
[2016-07-19] MEDS: LEVOTHYROXINE SODIUM 100 MCG TAB PO SCH (06:00)
[2016-07-19 06:58] LABS: BICARBONATE 22.5 MEQ/L (21.0-32.0); POTASSIUM 3.7 MEQ/L (3.5-5.1)
[2016-07-19 07:10] LABS: AUTOMATED NEUTROPHIL # 2.9 TH/MM3 (1.8-7.7); BASOPHIL % 0.9 % (0.0-2.0); EOSINOPHIL # 0.2 TH/MM3 (0-0.4); EOSINOPHIL % 5.1 % (0.0-4.0); HEMATOCRIT 29.7 % (35.0-46.0); HEMO FLAGS DIFF FINAL; LYMPH % 23.9 % (9.0-44.0); LYMPHOCYTE # 1.2 TH/MM3 (1.0-4.8); MEAN CELL VOLUME 91.6 FL (80.0-100.0); MEAN CORPUSCULAR HEMOGLOBIN 29.3 PG (27.0-34.0); NEUT % 58.1 % (16.0-70.0); PLATELET COUNT 223 TH/MM3 (150-450); RED BLOOD COUNT 3.24 MIL/MM3 (4.00-5.30); RED CELL DISTRIBUTION WIDTH 16.2 % (11.6-17.2); WHITE BLOOD COUNT 4.9 TH/MM3 (4.0-11.0)
--- NOTE | 2016-07-19 07:40 | PD.CARD.PN ---
Subjective Subjective Remarks Denies dyspnea. Abdominal pain better. No N/V. Mild pain at pacer incision site. Objective Medications Item Value Date Time Aspirin 81 mg 07/15/162099 (Ecotrin Ec) HS/PO 07/18/162052 Pravastatin Sodium 80 mg 07/15/162099 (Pravachol) HS/PO 07/18/162053 Vital Signs / I&O Vital Signs Date Time Temp Pulse Resp B/P Pulse Ox O2 Delivery O2 Flow Rate FiO2 07/19/16 06:00 77 07/19/16 05:00 74 07/19/16 04:06 98 Nasal Cannula 2.00 07/19/16 04:00 88 07/19/16 03:00 98 Nasal Cannula 2.00 07/19/16 03:00 97.5 83 16 126/89 99 07/19/16 03:00 83 07/19/16 02:00 85 07/19/16 01:00 77 07/19/16 00:00 68 07/18/16 23:39 98 Nasal Cannula 2.00 07/18/16 23:00 70 07/18/16 23:00 97.5 100 18 118/56 99 07/18/16 23:00 98 Nasal Cannula 2.00 07/18/16 22:00 101 07/18/16 21:00 98 07/18/16 20:00 82 07/18/16 19:30 95 Room Air 07/18/16 19:00 78 07/18/16 19:00 98.0 78 16 102/55 98 07/18/16 18:00 70 07/18/16 17:28 98 07/18/16 16:04 76 07/18/16 15:15 97.5 84 18 143/76 100 07/18/16 15:15 100 Nasal Cannula 2.00 07/18/16 15:15 84 07/18/16 13:03 60 07/18/16 12:34 18 07/18/16 12:02 60 07/18/16 11:55 64 07/18/16 11:00 100 Nasal Cannula 2.00 07/18/16 11:00 64 07/18/16 11:00 97.6 64 18 105/55 100 07/18/16 10:16 60 07/18/16 09:49 60 07/18/16 08:00 100 Nasal Cannula 2.00 07/18/16 08:00 97.6 31 18 142/66 100 07/18/16 08:00 31 I/O 07/18/16 07/18/16 07/18/16 07/19/16 07/19/16 07/19/16 07:00 15:00 23:00 07:00 15:00 23:00 Intake Total 360 ml 1320 ml 1067 ml Output Total 600 ml 1950 ml Balance -240 ml 1320 ml -883 ml Intake Oral 360 ml 720 ml 720 ml IV Total 600 ml 347 ml Output Urine Total 600 ml 1950 ml # Voids 3 # Bowel Movements 0 0 Physical Exam Pacer site clean, dry, intact, no hematoma or tenderness. Laboratory Laboratory Tests Test 07/18/16 07/18/16 07/19/16 11:54 17:06 05:40 Total Creatine Kinase 46 U/L 55 U/L Troponin I 0.03 NG/ML 0.05 NG/ML Lipase 243 U/L White Blood Count 4.9 TH/MM3 Red Blood Count 3.24 MIL/MM3 Hemoglobin 9.5 GM/DL Hematocrit 29.7 % Mean Corpuscular Volume 91.6 FL Mean Corpuscular Hemoglobin 29.3 PG Mean Corpuscular Hemoglobin 32.0 % Concent Red Cell Distribution Width 16.2 % Platelet Count 223 TH/MM3 Mean Platelet Volume 8.4 FL Neutrophils (%) (Auto) 58.1 % Lymphocytes (%) (Auto) 23.9 % Monocytes (%) (Auto) 12.0 % Eosinophils (%) (Auto) 5.1 % Basophils (%) (Auto) 0.9 % Neutrophils # (Auto) 2.9 TH/MM3 Lymphocytes # (Auto) 1.2 TH/MM3 Monocytes # (Auto) 0.6 TH/MM3 Eosinophils # (Auto) 0.2 TH/MM3 Basophils # (Auto) 0.0 TH/MM3 CBC Comment DIFF FINAL Differential Comment Sodium Level 141 MEQ/L Potassium Level 3.7 MEQ/L Chloride Level 110 MEQ/L Carbon Dioxide Level 22.5 MEQ/L Anion Gap 9 MEQ/L Blood Urea Nitrogen 10 MG/DL Creatinine 0.90 MG/DL Estimat Glomerular Filtration 62 ML/MIN Rate Random Glucose 81 MG/DL Calcium Level 7.9 MG/DL Assessment and Plan Problem List: (1) Complete heart block Assessment and Plan: Stable s/p permanent pacer implant yesterday. Pacer site OK. Pacer re-interrogation pending. Code Status full code Discussed Condition With patient Jensen Fontanez MD Jul 19, 2016 07:40
[2016-07-19] MEDS: FAMOTIDINE 20 MG TAB PO SCH ×2 (08:19→20:26)
[2016-07-19] MEDS: VENLAFAXINE HCL XR 75 MG CAP PO SCH (08:19)
[2016-07-19] MEDS: CYANOCOBALAMIN 1,000 MCG TAB PO SCH (08:20)
[2016-07-19] MEDS: ACETAMINOPHEN/HYDROcodone 325 MG/5 MG TAB PO PRN ×3 (08:20→20:26)
[2016-07-19] MEDS: FLUTICASONE 100 MCG/VILANTEROL 25 MCG INHALER INH SCH (08:20)
[2016-07-19] MEDS: ETHAMBUTOL HCL 400 MG TAB PO SCH (08:20)
[2016-07-19] MEDS: AZITHROMYCIN 250 MG TAB PO SCH (09:38)
--- NOTE | 2016-07-19 13:09 | HHI.PR ---
Subjective Remarks Patient sitting on the chair denied any palpitation lightheaded or dizziness or short of breath or chest pain, she is post pacemaker insertion She stated her abdominal pain is less today however with palpitation she does react with significant pain on the right lower quadrant, she still on clear liquid diet she wants to eat, we'll advance her to full liquid cautiously She is afebrile today, no nausea or vomiting, did not have a bowel movement Objective Vitals Vital Signs Date Time Temp Pulse Resp B/P Pulse Ox O2 Delivery O2 Flow Rate FiO2 07/19/16 12:00 97.8 77 16 93/54 94 07/19/16 12:00 78 07/19/16 11:00 74 07/19/16 10:39 94 21 07/19/16 10:00 74 07/19/16 09:37 16 07/19/16 09:00 80 07/19/16 08:00 97.6 76 16 96/53 96 07/19/16 08:00 80 07/19/16 07:49 Nasal Cannula 3.00 21 07/19/16 07:00 72 07/19/16 06:00 77 07/19/16 05:00 74 07/19/16 04:06 98 Nasal Cannula 2.00 07/19/16 04:00 88 07/19/16 03:00 98 Nasal Cannula 2.00 07/19/16 03:00 97.5 83 16 126/89 99 07/19/16 03:00 83 07/19/16 02:00 85 07/19/16 01:00 77 07/19/16 00:00 68 07/18/16 23:39 98 Nasal Cannula 2.00 07/18/16 23:00 70 07/18/16 23:00 97.5 100 18 118/56 99 07/18/16 23:00 98 Nasal Cannula 2.00 07/18/16 22:00 101 07/18/16 21:00 98 07/18/16 20:00 82 07/18/16 19:30 95 Room Air 07/18/16 19:00 78 07/18/16 19:00 98.0 78 16 102/55 98 07/18/16 18:00 70 07/18/16 17:28 98 07/18/16 16:04 76 07/18/16 15:15 97.5 84 18 143/76 100 07/18/16 15:15 100 Nasal Cannula 2.00 07/18/16 15:15 84 I/O 07/18/16 07/18/16 07/18/16 07/19/16 07/19/16 07/19/16 07:00 15:00 23:00 07:00 15:00 23:00 Intake Total 360 ml 1320 ml 1067 ml Output Total 600 ml 1950 ml Balance -240 ml 1320 ml -883 ml Intake Oral 360 ml 720 ml 720 ml IV Total 600 ml 347 ml Output Urine Total 600 ml 1950 ml # Voids 3 # Bowel Movements 0 0 Result Diagram: 07/19/16 0540 07/19/16 0540 Objective Remarks GENERAL: This is a well-nourished, well-developed patient, in no apparent distress. SKIN: No rashes, warm and dry HEAD: Atraumatic. Normocephalic. EYES: Pupils equal round and reactive. Extraocular motions intact. No scleral icterus. ENT: Nose without bleeding, or drainage, Airway patent. NECK: Trachea midline. Supple CARDIOVASCULAR: Regular rate and rhythm without murmurs, gallops, or rubs. RESPIRATORY: Fair air entry bilaterally. No wheezes, rales, or rhonchi. GASTROINTESTINAL: Abdomen soft, significant tenderness to palpation on the right lower quadrant, nondistended. Positive bowel sounds MUSCULOSKELETAL: Extremities without clubbing, cyanosis, or edema. Pedal pulses appreciated NEUROLOGICAL: Awake and alert. Moves all extremity. 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 We will advance to full liquid diet cautiously and monitor - Bradycardia with complete heart block. Status post permanent pacemaker insertion by cardiology - Hypothyroidism: Continue Synthroid. - MAC with cough: Patient states that she has been under treatment for the past year at a tertiary care center. Appreciate ID consultation. Continue azithromycin and ethambutol, hold amikacin per ID recommendation - Hypertension: Blood pressure is now low. Hold losartan. Continue lower dose carvedilol. IV fluids. - Diabetes mellitus: Hold metformin. Monitor Accu-Cheks and cover with sliding scale insulin. - Hyperlipidemia: Continue statin. - DVT prophylaxis: Heparin. Cristhian Moreno MD Jul 19, 2016 13:09 needed. Chest x-ray this morning showed irregular right apical pleural- parenchymal density and mild streaky opacities in the bases. Consider chest CT if no improvement. Cristhian Moreno MD Jul 19, 2016 13:09
[2016-07-19] MEDS: PRAVASTATIN SOD 80 MG TAB PO SCH (20:26)
[2016-07-19] MEDS: clonazePAM 0.5 MG TAB PO SCH (20:26)
[2016-07-19] MEDS: MUPIROCIN 2% OINT 1 APPLIC/GM SYR EACH NARE SCH (20:27)
[2016-07-19] MEDS: ASPIRIN EC 81 MG TABEC PO SCH (20:27)
--- NOTE | 2016-07-19 20:29 | EKG ---
Date Performed: 07/18/2016 Time Performed: 17:46:52 PTAGE: 71 years EKG: Demand pacing PACs Pacemaker rhythm - no further analysis Abnormal ECG PREVIOUS TRACING : 07/18/2016 06.15 Compared to the previous tracing, bradycardia no longer pr esent DOCTOR: French Reid Interpretating Date/Time 07/19/2016 20:27:42
[2016-07-19] MEDS: POVIDONE IODINE 5% (ANTISEPSIS KIT) 4 APPLICATIONS TOPICAL SCH (21:00)
[2016-07-19] MEDS: CHLORHEXIDINE GLUCONATE 2 % 1 PACK (2 CLOTHS) TOPICAL SCH (21:00)
[2016-07-20] VITALS (20 sets, daily range): BP systolic 105–137; BP diastolic 57–80; PULSE 72–112; RESP 16–20; TEMP 97.6–98.8; O2SAT 92–100
[2016-07-20] MEDS: SODIUM CHLOR 0.9% 1000 ML INJ 500 ML IV SCH ×2 (01:10→04:30)
[2016-07-20] MEDS: metroNIDAZOLE 500 MG INJ 100 ML IV SCH ×3 (05:04→21:15)
[2016-07-20] MEDS: LEVOTHYROXINE SODIUM 100 MCG TAB PO SCH (05:04)
[2016-07-20] MEDS ORDERED: LEVOFLOXACIN 750 MG PREMIX INJ 150 ML IV SCH (09:00)
[2016-07-20] MEDS: FAMOTIDINE 20 MG TAB PO SCH ×2 (10:02→21:15)
[2016-07-20] MEDS: AZITHROMYCIN 250 MG TAB PO SCH (10:02)
[2016-07-20] MEDS: VENLAFAXINE HCL XR 75 MG CAP PO SCH (10:02)
[2016-07-20] MEDS: CYANOCOBALAMIN 1,000 MCG TAB PO SCH (10:03)
[2016-07-20] MEDS: ETHAMBUTOL HCL 400 MG TAB PO SCH (10:04)
[2016-07-20] MEDS: FLUTICASONE 100 MCG/VILANTEROL 25 MCG INHALER INH SCH (10:05)
--- NOTE | 2016-07-20 13:05 | HHI.PR ---
Subjective Remarks Patient reported still having very minimal lower quadrant right abdominal pain, she is tolerating full liquid diet We will advance diet and have patient mobilize with physical therapy and assess her through the day Objective Vitals Vital Signs Date Time Temp Pulse Resp B/P Pulse Ox O2 Delivery O2 Flow Rate FiO2 07/20/16 04:11 97 Nasal Cannula 2.00 07/20/16 04:00 76 07/20/16 04:00 97.6 76 16 110/57 100 07/20/16 00:11 72 07/20/16 00:11 98.7 72 16 114/67 100 07/20/16 00:09 97 Nasal Cannula 2.00 07/19/16 20:00 90 07/19/16 20:00 97 Nasal Cannula 2.00 07/19/16 20:00 98.0 90 16 95/59 93 07/19/16 19:31 Nasal Cannula 2.00 07/19/16 18:00 93 07/19/16 17:26 20 07/19/16 17:00 91 07/19/16 16:00 97.9 91 18 117/62 97 07/19/16 16:00 Room Air 07/19/16 16:00 90 07/19/16 15:00 80 07/19/16 14:00 83 I/O 07/19/16 07/19/16 07/19/16 07/20/16 07/20/16 07/20/16 07:00 15:00 23:00 07:00 15:00 23:00 Intake Total 1067 ml 1350 ml 680 ml Output Total 1950 ml 600 ml Balance -883 ml 1350 ml 80 ml Intake Oral 720 ml 1200 ml 480 ml IV Total 347 ml 150 ml 200 ml Output Urine Total 1950 ml 600 ml # Voids 3 # Bowel Movements 0 0 0 Result Diagram: 07/19/16 0540 07/19/16 0540 Objective Remarks GENERAL: This is a well-nourished, well-developed patient, in no apparent distress. SKIN: No rashes, warm and dry HEAD: Atraumatic. Normocephalic. EYES: Pupils equal round and reactive. Extraocular motions intact. No scleral icterus. ENT: Nose without bleeding, or drainage, Airway patent. NECK: Trachea midline. Supple CARDIOVASCULAR: Regular rate and rhythm without murmurs, gallops, or rubs. RESPIRATORY: Fair air entry bilaterally. No wheezes, rales, or rhonchi. GASTROINTESTINAL: Abdomen soft, much less tender to palpation on the right lower quadrant, nondistended. Positive bowel sounds MUSCULOSKELETAL: Extremities without clubbing, cyanosis, or edema. Pedal pulses appreciated NEUROLOGICAL: Awake and alert. Moves all extremity. 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 advance diet today, PT OT - Bradycardia with complete heart block. Status post permanent pacemaker insertion by cardiology - Hypothyroidism: Continue Synthroid. - MAC with cough: Patient states that she has been under treatment for the past year at a tertiary care center. Appreciate ID consultation. Continue azithromycin and ethambutol, hold amikacin per ID recommendation - Hypertension: Blood pressure is now low. Hold losartan. Continue lower dose carvedilol. IV fluids. - Diabetes mellitus: Hold metformin. Monitor Accu-Cheks and cover with sliding scale insulin. - Hyperlipidemia: Continue statin. - DVT prophylaxis: Heparin. Discharge Planning DC later today or tomorrow if patient tolerated diet well and ambulate fine per PT Cristhian Medrano MD Jul 20, 2016 13:05
--- NOTE | 2016-07-20 17:31 | HHI.IDPN ---
Note Infectious Disease Note Patient feels better. No fever. No abdominal pain. Diet being advanced. Notes her bowel is a little loose. This is a 71-year-old white female who was admitted to the hospital after presenting to the emergency department on 07/15 with abdominal pain. The patient presented with left lower quadrant abdominal pain. She was evaluated with CT scan of the abdomen which showed diverticulitis. She is receiving pain medication and is also on antibiotics. The patient has MULTIPLE ANTIBIOTIC ALLERGIES. She has a history of pulmonary Mycobacterium avium infection and has been evaluated at [facility] and put on medication with antibiotics treatment which she has been receiving since January 2016. She was on Amikacin intravenous along with ethambutol and azithromycin. The amikacin was changed to aerosol. She started developing hoarseness of the voice. And stopped the aerosolized Amikacin two weeks ago. The patient is also diagnosed with sarcoidosis and it is felt that she may have pulmonary and probably cardiac involvement with sarcoidosis. She came in with pain on a scale of 10 over 10. PAST MEDICAL HISTORY 1. Pulmonary and cardiac sarcoidosis 2. MAC pulmonary infection 3. Arthritis, 4. Hyperlipidemia, 5. COPD, 6. Diabetes mellitus, 7. Hypothyroidism, 8. GERD, 9. Cholecystectomy, 10. Thyroidectomy, 11. Appendectomy, 12. Cardiac catheterization 13. Bladder sling 14. Left knee replacement 15. Right hip replacement 16. Right foot surgery, 17. Tubal ligation 18. Vocal cord surgery. ALLERGIES SULFA TRIMETHOPRIM CEPHALEXIN ALLOPURINOL MELOXICAM METHIMAZOLE OXYCODONE PROPRANOLOL PROPYLTHIOURACIL RAMUCIRUMAB ETHAMBUTOL SULFA TRIMETHOPRIM Current Medications Medications (Trade) Dose Ordered Sig/Crow Route PRN Reason Start Time Stop Time Status Last Admin Dose Admin Ondansetron HCl (Zofran Inj) 4 mg Q6H PRN IVP NAUSEA OR VOMITING 07/15/16 17:00 07/18/16 06:13 Magnesium Hydroxide (Milk Of Magnesia Liq) 30 ml Q12H PRN PO CONSTIPATION 07/15/16 17:00 Naloxone HCl 0.4 mg 0.4 mg UNSCH PRN IV SEE LABEL COMMENTS 07/15/16 17:00 Metronidazole (Flagyl 500 Mg Inj) 100 ml @ 100 mls/hr Q8H IV 07/15/16 21:00 07/20/16 14:19 Aspirin (Ecotrin Ec) 81 mg HS PO 07/15/16 21:00 07/19/16 20:27 Azithromycin (Zithromax) 250 mg DAILY PO 07/16/16 09:00 07/20/16 10:02 Clonazepam (KlonoPIN) 0.5 mg HS PO 07/15/16 21:00 07/19/16 20:26 Cyanocobalamin (Vitamin B12) 1,000 mcg DAILY PO 07/16/16 09:00 07/20/16 10:03 Ethambutol HCl (Myambutol) 1,000 mg DAILY PO 07/16/16 09:00 07/20/16 10:04 Fluticasone/ Vilanterol (Breo Ellipta 100-25 Inh) 1 puff DAILY INH 07/16/16 09:00 07/20/16 10:05 Levothyroxine Sodium (Synthroid) 100 mcg DAILY@06 PO 07/16/16 06:00 07/20/16 05:04 Pravastatin Sodium (Pravachol) 80 mg HS PO 07/15/16 21:00 07/19/16 20:26 Venlafaxine HCl (Effexor Xr) 75 mg DAILY PO 07/16/16 09:00 07/20/16 10:02 Carvedilol (Coreg) 3.125 mg BID PO 07/16/16 09:00 Hold 07/17/16 09:32 Famotidine (Pepcid) 10 mg BID PO 07/16/16 21:00 07/20/16 10:02 Miscellaneous (Pill Splitter) 1 ea UNSCH PRN OTHER SEE LABEL COMMENTS 07/16/16 14:15 Benzonatate (Tessalon) 100 mg TID PRN PO COUGH 07/17/16 10:45 Hold Morphine Sulfate (Morphine Inj) 2 mg Q4HR PRN IV PUSH BREAKTHROUGH PAIN 07/17/16 12:00 Acetaminophen/ Hydrocodone Bitart (Kevil 5-325 Mg) 1 tab Q4H PRN PO PAIN SCALE 3 TO 6 07/17/16 11:00 07/19/16 20:26 Acetaminophen/ Hydrocodone Bitart (Kevil 7.5-325 Mg) 1 tab Q4H PRN PO PAIN SCALE 7 TO 10 07/17/16 11:00 07/19/16 03:04 Atropine Sulfate 0.4 mg 0.4 mg Q3HR PRN IV PUSH SECRETIONS 07/18/16 07:15 Sodium Chloride (NS 1000 ml Inj) 500 ml @ 150 mls/hr Q3H20M IV 07/18/16 12:30 07/18/16 15:50 Povidone Iodine (Betadine 5% Antisepsis Kit) 1 applic HS TOPICAL 07/18/16 21:00 Mupirocin (Bactroban Nasal 2% Oint) 1 applic HS EACH NARE 07/18/16 21:00 07/18/16 20:54 Chlorhexidine Gluconate (Chlorhexidine 2% Cloth) 1 pack HS TOPICAL 07/18/16 21:00 Zolpidem Tartrate (Ambien) 5 mg HS PRN PO INSOMNIA 07/18/16 14:45 Tramadol HCl 50 mg 50 mg Q6H PRN PO PAIN SCALE 4 TO 10 07/18/16 14:45 Levofloxacin/ Dextrose (Levaquin 750 Mg Premix Inj) 150 ml @ 100 mls/hr Q48H IV 07/20/16 09:00 07/20/16 10:02 SOCIAL HISTORY No tobacco use. The patient is a former smoker. No alcohol use. No illicit drugs. FAMILY HISTORY Noncontributory. REVIEW OF SYSTEMS Significant for night sweats, abdominal pain. OBJECTIVE: Vital Signs Date Time Temp Pulse Resp B/P Pulse Ox O2 Delivery O2 Flow Rate FiO2 07/20/16 15:24 90 07/20/16 15:24 98.8 90 20 137/75 92 07/20/16 15:24 92 Room Air 07/20/16 12:30 92 Room Air 07/20/16 12:30 89 07/20/16 12:30 98.1 89 20 137/74 92 07/20/16 08:00 88 07/20/16 08:00 92 Room Air 07/20/16 08:00 98.5 88 20 105/63 92 07/20/16 04:11 97 Nasal Cannula 2.00 07/20/16 04:00 76 07/20/16 04:00 97.6 76 16 110/57 100 07/20/16 00:11 72 07/20/16 00:11 98.7 72 16 114/67 100 07/20/16 00:09 97 Nasal Cannula 2.00 07/19/16 20:00 90 07/19/16 20:00 97 Nasal Cannula 2.00 07/19/16 20:00 98.0 90 16 95/59 93 07/19/16 19:31 Nasal Cannula 2.00 07/19/16 18:00 93 07/19/16 07/19/16 07/20/16 15:00 23:00 07:00 Intake Total 1350 ml 680 ml Output Total 600 ml Balance 1350 ml 80 ml Intake Oral 1200 ml 480 ml IV Total 150 ml 200 ml Output Urine Total 600 ml # Voids 3 # Bowel Movements 0 0 Laboratory Tests Test 07/19/16 05:40 White Blood Count 4.9 TH/MM3 Red Blood Count 3.24 MIL/MM3 Hemoglobin 9.5 GM/DL Hematocrit 29.7 % Mean Corpuscular Volume 91.6 FL Mean Corpuscular Hemoglobin 29.3 PG Mean Corpuscular Hemoglobin 32.0 % Concent Red Cell Distribution Width 16.2 % Platelet Count 223 TH/MM3 Mean Platelet Volume 8.4 FL Neutrophils (%) (Auto) 58.1 % Lymphocytes (%) (Auto) 23.9 % Monocytes (%) (Auto) 12.0 % Eosinophils (%) (Auto) 5.1 % Basophils (%) (Auto) 0.9 % Neutrophils # (Auto) 2.9 TH/MM3 Lymphocytes # (Auto) 1.2 TH/MM3 Monocytes # (Auto) 0.6 TH/MM3 Eosinophils # (Auto) 0.2 TH/MM3 Basophils # (Auto) 0.0 TH/MM3 CBC Comment DIFF FINAL Differential Comment Laboratory Tests Test 07/19/16 05:40 Sodium Level 141 MEQ/L Potassium Level 3.7 MEQ/L Chloride Level 110 MEQ/L Carbon Dioxide Level 22.5 MEQ/L Anion Gap 9 MEQ/L Blood Urea Nitrogen 10 MG/DL Creatinine 0.90 MG/DL Estimat Glomerular Filtration 62 ML/MIN Rate Random Glucose 81 MG/DL Calcium Level 7.9 MG/DL PHYSICAL EXAMINATION GENERAL: No acute distress. She is awake and alert and oriented. HEENT: Extraocular movements grossly intact, pupils reactive to light. No icterus. Nose without bleeding or swelling or drainage. Oropharynx - no visible lesions. NECK: Supple without adenopathy. LUNGS: Decreased breath sounds throughout. HEART: Regular S1-S2 without audible murmurs, rubs or gallops. ABDOMEN: Bowel sounds present, soft, nontender. EXTREMITIES: No clubbing or cyanosis or edema. SKIN: No rash. NEUROLOGIC: Alert and oriented without focal findings. PSYCHIATRIC: The patient calm and cooperative. IMPRESSION 1. Acute diverticulitis. 2. Pulmonary MAC with cavitation. RECOMMENDATIONS 1. Continue the treatment for diverticulitis with Flagyl 500 mg PO q6H and Levaquin 500 mg PO daily x 7 days more. 2. Continue ethambutol current dose. Patient may continue to take her home supply for MAC. 3. Hold off on Amikacin for now. 4. Continue azithromycin PO Patient may continue to take her home supply for MAC. Shaquille Ferro MD Jul 20, 2016 17:31
[2016-07-20] MEDS: ASPIRIN EC 81 MG TABEC PO SCH (21:15)
[2016-07-20] MEDS: PRAVASTATIN SOD 80 MG TAB PO SCH (21:15)
[2016-07-20] MEDS: clonazePAM 0.5 MG TAB PO SCH (21:15)
[2016-07-20] MEDS: ACETAMINOPHEN/HYDROcodone 325 MG/5 MG TAB PO PRN (21:18)
[2016-07-21] VITALS (16 sets, daily range): BP systolic 105–119; BP diastolic 62–78; PULSE 81–116; RESP 18; TEMP 97.5–98.8; O2SAT 95–100
[2016-07-21] MEDS: SODIUM CHLOR 0.9% 1000 ML INJ 500 ML IV SCH ×2 (00:30→03:50)
[2016-07-21] MEDS: LEVOTHYROXINE SODIUM 100 MCG TAB PO SCH (05:10)
[2016-07-21] MEDS: metroNIDAZOLE 500 MG INJ 100 ML IV SCH (05:10)
--- NOTE | 2016-07-21 08:00 | MP ---
cc: MONISHA ARENAS MD, GLEN DATE OF SURGERY 07/18/2016 PROCEDURE Dual-chamber permanent pacemaker implantation via the left subclavian vein. INDICATIONS Symptomatic intermittent complete heart block. OPERATIVE NOTE The patient was brought to the operating suite in a fasting state after having signed informed consent. The left upper chest was prepped and draped as per policy and anesthetized with 1% lidocaine. Central venous access was obtained twice via the left subclavian vein using modified Seldinger technique after administration of 15 mL of contrast through a left arm peripheral IV. A transverse incision was made inferior to the left clavicle and using blunt dissection, a subcutaneous pocket was formed down to the pectoralis fascia. Over the more lateral guidewire, a 7-Estonian sheath was placed and through this sheath a ventricular active fixation lead was introduced and its tip positioned in the right ventricular apex where a good current of injury, stimulation threshold (0.8 volts) and sensitivity (6.3 mV) were demonstrated. This lead was secured into place using 2-0 silk ties down to the pectoralis fascia. Over the remaining guidewire, another 7-Estonian sheath was placed and through this sheath an atrial active fixation lead was introduced and its tip positioned in the right atrial appendage region where good current of injury, stimulation threshold (1.0 volts) and sensitivity (1.5 mV) were demonstrated. This lead was secured into place using 2-0 silk ties down to the pectoralis fascia. The leads were then connected to the pacemaker generator which is a Biotronik Eluna device. The leads and the generator were placed into the subcutaneous pocket which was closed using 3-0 Vicryl interrupted stitches in two layers to close the subcutaneous tissue and then 4-0 Monocryl running stitch to close the subcuticular tissue. Overlapping Steri-Strips and a dressing were applied. There were no apparent immediate complications. A portable chest x-ray is pending at the time of this dictation. CONCLUSION Successful dual-chamber permanent pacemaker implantation via the left subclavian vein using a Biotronik Eluna pacemaker generator. MD DAIMOND Miramontes/NELLA /2:43 PM /7:47 AM MAIDA
[2016-07-21] MEDS: AZITHROMYCIN 250 MG TAB PO SCH (09:12)
[2016-07-21] MEDS: CYANOCOBALAMIN 1,000 MCG TAB PO SCH (09:12)
[2016-07-21] MEDS: FAMOTIDINE 20 MG TAB PO SCH (09:12)
[2016-07-21] MEDS: VENLAFAXINE HCL XR 75 MG CAP PO SCH (09:12)
[2016-07-21] MEDS: FLUTICASONE 100 MCG/VILANTEROL 25 MCG INHALER INH SCH (09:13)
[2016-07-21] MEDS: ETHAMBUTOL HCL 400 MG TAB PO SCH (09:13)
[2016-07-21] MEDS ORDERED: LEVA500T PO (13:20)
[2016-07-21] MEDS ORDERED: METR-1 PO (13:20)
--- NOTE | 2016-07-21 13:22 | HHI.FF ---
Face to Face Verification Diagnosis: (1) Chest pain (2) Acute diverticulitis (3) Arrhythmia (4) Hypotension (5) Mycobacterium avium complex (6) Complete heart block (7) COPD (chronic obstructive pulmonary disease) Physical Therapy Order: Evaluate and Treat Occupational Therapy Order: Evaluate and Treat Home Health Nursing Order: Medical education Diabetic education Nursing assessment with vital signs I have seen patient Nanette Rodriguez on 07/21/16. My clinical findings support the need for the requested home health care services because: Ltd mobility - disease progression I certify that my clinical findings support that this patient is homebound because: Post-op weakness Cristhian Moreno MD Jul 21, 2016 13:22
--- NOTE | 2016-07-21 16:06 | HHI.PR ---
Subjective Remarks Feeling better today, much less abdominal pain, no nausea or vomiting, tolerated solid food well, heart rate within normal limits Plan to discharge home today Objective Vitals Vital Signs Date Time Temp Pulse Resp B/P Pulse Ox O2 Delivery O2 Flow Rate FiO2 07/21/16 10:30 95 07/21/16 07:28 94 07/21/16 07:28 95 Room Air 07/21/16 07:28 98.5 94 18 111/76 95 07/21/16 06:00 83 07/21/16 05:00 88 07/21/16 04:00 98 07/21/16 03:15 97.5 81 18 105/62 100 07/21/16 03:15 100 Nasal Cannula 2.00 07/21/16 03:00 85 07/21/16 02:00 93 07/21/16 01:00 89 07/21/16 00:00 86 07/20/16 23:00 98 Nasal Cannula 2.00 07/20/16 23:00 98.3 89 18 117/80 98 07/20/16 23:00 89 07/20/16 22:00 112 07/20/16 21:00 97 07/20/16 20:00 97 07/20/16 20:00 98 Nasal Cannula 2.00 07/20/16 20:00 98.7 95 18 133/77 98 07/20/16 19:00 96 07/20/16 18:00 92 07/20/16 17:00 94 I/O 07/20/16 07/20/16 07/20/16 07/21/16 07/21/16 07/21/16 06:59 14:59 22:59 06:59 14:59 22:59 Intake Total 680 ml 650 ml 440 ml Output Total 600 ml 250 ml Balance 80 ml 400 ml 440 ml Intake Oral 480 ml 400 ml 240 ml IV Total 200 ml 250 ml 200 ml Output Urine Total 600 ml 250 ml # Voids 4 3 # Bowel Movements 0 2 1 Result Diagram: 07/19/1640 07/19/16 0540 Objective Remarks GENERAL: This is a well-nourished, well-developed patient, in no apparent distress. SKIN: No rashes, warm and dry HEAD: Atraumatic. Normocephalic. EYES: Pupils equal round and reactive. Extraocular motions intact. No scleral icterus. ENT: Nose without bleeding, or drainage, Airway patent. NECK: Trachea midline. Supple CARDIOVASCULAR: Regular rate and rhythm without murmurs, gallops, or rubs. RESPIRATORY: Fair air entry bilaterally. No wheezes, rales, or rhonchi. GASTROINTESTINAL: Abdomen soft, much less tender to palpation on the right lower quadrant, nondistended. Positive bowel sounds MUSCULOSKELETAL: Extremities without clubbing, cyanosis, or edema. Pedal pulses appreciated NEUROLOGICAL: Awake and alert. Moves all extremity. 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 , - Bradycardia with complete heart block. Status post permanent pacemaker insertion by cardiology - Hypothyroidism: Continue Synthroid. - MAC with cough: Patient states that she has been under treatment for the past year at a tertiary care center. Appreciate ID consultation. Continue azithromycin and ethambutol, hold amikacin per ID recommendation - Hypertension: Blood pressure is now low. Hold losartan. Continue lower dose carvedilol. IV fluids. - Diabetes mellitus: Hold metformin. Monitor Accu-Cheks and cover with sliding scale insulin. - Hyperlipidemia: Continue statin. - DVT prophylaxis: Heparin. Discharge Planning DC later today or tomorrow if patient tolerated diet well and ambulate fine per PT Cristhian Medrano MD Jul 21, 2016 16:06
--- NOTE | 2016-07-23 09:53 | HHI.DS ---
Discharge Summary Admission Date Jul 15, 2016 at 15:49 Discharge Date: Jul 21, 2016 Admitting Diagnosis acute diverticulitis (1) Diverticulitis ICD Code: K57.92 (2) Sarcoidosis ICD Code: D86.9 (3) Diabetes mellitus, type 2 ICD Code: E11.9 (4) COPD (chronic obstructive pulmonary disease) ICD Code: J44.9 (5) Arrhythmia ICD Code: I49.9 (6) Hypotension ICD Code: I95.9 (7) Mycobacterium avium complex ICD Code: A31.0 Procedures Permanent pacemaker insertion None Brief History - From Admission Patient is a 71-year-old female who was in the emergency department with complaint of left lower quadrant abdominal pain. The pain started yesterday at about 11:30 in the morning following a late breakfast. She went emergency department in [place] and was diagnosed with diverticulitis. She was given pain medication and discharged home with prescription for Flagyl and ciprofloxacin. She did not fill the prescriptions for antibiotics. Pain continued to worsen and she returned to the emergency department this morning. Denies nausea or vomiting. Has had night sweats, but no fever or chills. Denies constipation or diarrhea. CBC/BMP: 07/19/16 0540 07/19/16 0540 PE at Discharge GENERAL: This is a well-nourished, well-developed patient, in no apparent distress. SKIN: No rashes, warm and dry HEAD: Atraumatic. Normocephalic. EYES: Pupils equal round and reactive. Extraocular motions intact. No scleral icterus. ENT: Nose without bleeding, or drainage, Airway patent. NECK: Trachea midline. Supple CARDIOVASCULAR: Regular rate and rhythm without murmurs, gallops, or rubs. RESPIRATORY: Fair air entry bilaterally. No wheezes, rales, or rhonchi. GASTROINTESTINAL: Abdomen soft, much less tender to palpation on the right lower quadrant, nondistended. Positive bowel sounds MUSCULOSKELETAL: Extremities without clubbing, cyanosis, or edema. Pedal pulses appreciated NEUROLOGICAL: Awake and alert. Moves all extremity. Normal speech.no focal neurological deficit Hospital Course 71 years old female admitted for bradycardia with complete heart block as well as right lower quadrant abdominal pain, cardiology consulted she status post [place] and pacemaker insertion, CT abdomen showed acute diverticulitis, started on iv fluid, bowel rest, iv antibiotic, she improved over her hospital course, diet advanced gradually. Patient had a history of hypothyroidism also history of MAC with cough and ID consulted and recommended continuing Zithromax ethambutol holding amikacin, and continue Flagyl and Levaquin for diverticulitis post discharge. Patient also had a diabetes mellitus we held metformin, Accu-Chek with insulin sliding scale , patient was on statin for hyperlipidemia and heparin for DVT prophylaxis. Pt Condition on Discharge: Fair Discharge Disposition: Discharge Home Discharge Time: <= 30 minutes Discharge Instructions DIET: Follow Instructions for: Heart Healthy Diet, Diabetic Diet Additional Diet Instructions: avoid seeds , nuts Activities you can perform: See Additionl Instruction Other Activity Instructions: per PT recs New Medications: Levofloxacin (Levaquin) 500 Mg Tab 500 MG PO DAILY Infection #7 Ref 0 TAB Metronidazole (Flagyl) 500 Mg Tab 500 MG PO q6h Infection #21 Ref 0 TAB Continued Medications: Albuterol 18 GM Inh (Ventolin Hfa 18 GM Inh) 90 Mcg/Act Aer 1 PUFF INH DIRECTED PRN SHORTNESS OF BREATH #1 Ref 0 INHALER Albuterol Neb (Albuterol Neb) 2.5 Mg/3 Ml Neb 2.5 MG NEB BID While awake Breathing Treatment #60 Ref 0 NEBULE Aspirin (Aspirin) 81 Mg Tabdr 81 MG PO HS TAB Azithromycin (Azithromycin) 250 Mg Tab 250 MG PO DAILY Infection Ref 0 TAB Carvedilol (Carvedilol) 6.25 Mg Tab 6.25 MG PO BID #60 Ref 0 TAB Cyanocobalamin (B-12) 1,000 Mcg Cap 1000 MCG PO DAILY Nutritional Supplement #1 Ref 0 BOTTLE Ethambutol (Ethambutol) 400 Mg Tab 1000 MG PO DAILY Fluticasone-Vilanterol Inh (Breo Ellipta Inh) 100-25 Mcg/Act Inh 1 PUFF INH DAILY Use daily at the same time. #1 Ref 0 INHALER Furosemide (Lasix) 20 Mg Tab 10 MG PO DAILY #30 Ref 0 TAB Ibuprofen (Motrin Ib) 200 Mg Tab 600 MG PO Q6H PRN PAIN SCALE 1 TO 10 #21 Ref 0 TAB Levothyroxine (Synthroid) 100 Mcg Tab 100 MCG PO DAILY Thyroid #30 Ref 0 TAB Metformin (Metformin) 500 Mg Tab 500 MG PO BID With meals Blood Sugar Management #60 Ref 0 TAB Pravastatin (Pravastatin) 80 Mg Tab 80 MG PO HS Cholesterol Management #30 Ref 0 TAB Ranitidine (Ranitidine) 150 Mg Tab 150 MG PO DAILY PRN HEARTBURN Venlafaxine ER 24 HR (Venlafaxine ER 24 HR) 75 Mg Tab 75 MG PO DAILY #30 Ref 0 TAB Cristhian Moreno MD Jul 23, 2016 09:53
== END 2016-07-21 19:00 | disposition home or self-care (01) | DRG 392 ==
LOC: NEPA 11:57 → NEDA 15:49 → N07B 20:08 → HCIN 07-16 10:42 → N07A 07-17 21:44 → HCIN 07-18 07:16
PROVIDERS: ADMIT Hospitalist; ATTEND Hospitalist
PROC: 02HK3JZ Insertion of Pacemaker Lead into Right Ventricle, Percutaneous Approach (ICD-10-PCS; 2016-07-18)
PROC: 5A1223Z Performance of Cardiac Pacing, Continuous (ICD-10-PCS; 2016-07-18)
PROC: 02H63JZ Insertion of Pacemaker Lead into Right Atrium, Percutaneous Approach (ICD-10-PCS; 2016-07-18)
PROC: 0JH606Z Insertion of Pacemaker, Dual Chamber into Chest Subcutaneous Tissue and Fascia, Open Approach (ICD-10-PCS; principal; 2016-07-18 11:00)
PROC: 4B02XSZ Measurement of Cardiac Pacemaker, External Approach (ICD-10-PCS; 2016-07-19)
DX: K57.92 Diverticulitis of intestine, part unspecified, without perforation or abscess without bleeding (principal); I44.2 Atrioventricular block, complete; I42.9 Cardiomyopathy, unspecified; I95.9 Hypotension, unspecified; A31.0 Pulmonary mycobacterial infection; I50.9 Heart failure, unspecified; J44.9 Chronic obstructive pulmonary disease, unspecified; D86.89 Sarcoidosis of other sites; E11.9 Type 2 diabetes mellitus without complications; I10 Essential (primary) hypertension; E78.5 Hyperlipidemia, unspecified; M19.90 Unspecified osteoarthritis, unspecified site; K21.9 Gastro-esophageal reflux disease without esophagitis; F32.9 Major depressive disorder, single episode, unspecified; F41.9 Anxiety disorder, unspecified; I45.10 Unspecified right bundle-branch block; E86.0 Dehydration; E89.0 Postprocedural hypothyroidism; I25.10 Atherosclerotic heart disease of native coronary artery without angina pectoris; Z96.652 Presence of left artificial knee joint; Z96.641 Presence of right artificial hip joint; R00.1 Bradycardia, unspecified; Z79.84 Long term (current) use of oral hypoglycemic drugs; Z88.1 Allergy status to other antibiotic agents; Z87.891 Personal history of nicotine dependence; Z86.73 Personal history of transient ischemic attack (TIA), and cerebral infarction without residual deficits; Z87.442 Personal history of urinary calculi
CPT/HCPCS: 33208; 33210; 71010; 74177; 80048; 80053; 81001; 82550; 83605; 83690; 83735; 83880; 84443; 84484; 85025; 85610; 85730; 93005; 94150; 94640; 94664; 96361; 96365; 96367; 96374; 96375; C1769; C1785; C1893; C1898; C9113; J0690; J1170; J1644; J1940; J1956; J2250; J2270; J2405; J3010; J3370; J3475; J3480; J7030; J7050; J7613; Q9967